=== PATIENT | male | born 1945 | race African-American/Black ===

== ENCOUNTER 2016-07-24 05:13 | Inpatient (IN) | payer OTHER ==
[2016-07-24] VITALS (29 sets, daily range): BP systolic 66–231; BP diastolic 47–137
[~2016-07-24] VITALS: Ht 185.4 cm; Wt 82.3 kg
--- NOTE | ~2016-07-24 | D ---
[facility] [place] [address] DISCHARGE SUMMARY Name: VALDEZ WALTER Room #: 214-P ADM IN M.R.#: [id number] Admission: 07/24/16 Attend Phys: Anastacio Aguilar Discharge: Date of : 47 Report #: [id number] THIS REPORT FOR: //name// CC: Anastacio Doll DATE OF SERVICE: 07/27/2016 DATE OF ADMISSION: 07/24/2016. DATE OF DISCHARGE: 07/27/2016. ADMITTING DIAGNOSIS: Acute ST segment elevation myocardial infarction. DISCHARGE DIAGNOSES: 1. Coronary artery disease with ischemic cardiomyopathy and left ventricular dysfunction, ejection fraction of 25%. 2. Dyslipidemia. 3. History of hypertension. Follow up Dr. Aguilar in 3-4 weeks. DISCHARGE DIET: Salt restricted. [place] [employer] step 1 diet. DISCHARGE MEDICATIONS: 1. Carvedilol 6.25 mg p.o. b.i.d., lisinopril 10 mg daily. 2. Aspirin 81 mg daily. 3. Brilinta b.i.d. 4. Sublingual nitroglycerin. 5. Simvastatin 40 mg daily. PROCEDURES PERFORMED: 1. Left heart catheterization. 2. Percutaneous transluminal coronary angioplasty of a right totally occluded LAD in the mid portion with a 2.5 x 18 mm Resolute GRAHAM stent dilated to 18 atmospheres. BRIEF CLINICAL HISTORY: See history and physical in the chart. HOSPITAL COURSE: The patient was admitted to the hospital and went directly to angiography suite and underwent revascularization as stated above without complications. His blood pressures were quite low and this was supported with volume. Review of echocardiogram demonstrating ejection fraction of 25%, therapy was initiated per guidelines. Post-procedure, the patient had issues with blood pressure and his blood pressures stabilized on the current medical regimen. He was allowed to ambulate without any limitations of activity. [facility] [address] [place] [address] DISCHARGE SUMMARY Name: VALDEZ WALTER SOFI Room #: 214-P [facility] IN .R.#: [id number] Admission: 07/24/16 Attend Phys: Anastacio Aguilar Discharge: Date of : 47 Report #: [id number] Review of his decreased ejection fraction and risk of cardiac dysrhythmias with sudden cardiac , a defibrillator vest was then ordered to be discharged with the patient. He is being discharged in improved and stable condition to follow up with the previously stated discharge instructions and medications. <ELECTRONICALLY SIGNED> By: Anastacio Aguilar MD 07/27/16 1152 0724 0745 Anastacio Aguilar MD /nt
--- NOTE | ~2016-07-24 | EKG ---
[address] [place] [address] ELECTROCARDIOGRAM REPORT Name: VALDEZ WALTER SOFI Room #: 214-P ADM IN M.R.#: [id number] Admission: 07/24/16 Attend Phys: Dia Díaz MD Discharge: Date of : 47 Report #: [id number] THIS REPORT FOR: //name// [facility] ED Test Date: 2016-07-24 Test Time: 05:50:36 Pat Name: VALDEZ WALTER Department: Room: 214 Gender: M Belt Turner: PILAR : 1945 Requested By: Adelita Hammond Order Number: [id number] MD: Huy Hanks Measurements Intervals [place] Rate: 123 P: 52 MS: 128 QRS: 55 QRSD: 98 T: 201 QT: 332 QTc: 475 Interpretive Statements Sinus tachycardia Anterior ST elevation, consider injury pattern No previous ECG available for comparison Electronically Signed On 07-24-2016 7:57:51 GENETIC SCIENTIST by Huy Hanks [email or web address] <ELECTRONICALLY SIGNED> By: Huy Hanks MD, [facility] 07/24/16 0757 0550 0550 Huy Hanks MD, FACC /EPI
--- NOTE | ~2016-07-24 | EKG ---
[address] [address] ELECTROCARDIOGRAM REPORT Name: VALDEZ WALTER SOFI Room #: 214-P ADM IN M.R.#: [id number] Admission: 07/24/16 Attend Phys: Anastacio Aguilar Discharge: Date of : 47 Report #: [id number] THIS REPORT FOR: //name// [facility] Test Date: 2016-07-24 Test Time: 08:32:42 Pat Name: VALDEZ WALTER Department: Room: 214 P Gender: M Contracts Officer: Susan VELASCO : 1945 Requested By: Anastacio Aguilar Order Number: [id number] MD: Sebastián Claudio Measurements Intervals [place] Rate: 79 P: 73 [place]: 134 QRS: 72 QRSD: 106 T: 172 QT: 427 QTc: 490 Interpretive Statements Sinus rhythm Borderline repolarization abnormality Borderline ST elevation, anterior leads Borderline prolonged QT interval Compared to ECG 07/24/2016 05:50:36 Sinus tachycardia no longer present ST (T wave) deviation still present Electronically Signed On 07-24-2016 11:13:29 BIODIESEL ENGINE SPECIALIST by Sebastián Claudio [email or web address] <ELECTRONICALLY SIGNED> By: Sebastián Claudio MD 07/24/16 1113 0832 Sebastián Claudio MD /EPI
--- NOTE | ~2016-07-24 | CATHLAB ---
[place] [address] [address] [place] [address] INVASIVE PROCEDURE REPORT Name: VALDEZ WALTER Room #: 214-P [facility] IN M.R.#: [id number] Admission: 07/24/16 Attend Phys: Anastacio [place] Discharge: Date of : 47 Date of Service: 07/27/16 0716 Report #: [id number] THIS REPORT FOR: //name// CC: Anastacio Doll DATE OF SERVICE: 07/24/2016 DATE OF SERVICE: 07/24/2016. INDICATIONS: A 71-year-old male patient with acute ST segment elevation myocardial infarction. PROCEDURES: 1. Left heart catheterization, selective left and right coronary angiography, measurement of left ventricular end diastolic pressures. 2. Percutaneous transluminal coronary angioplasty and stenting with a Medtronic Resolute 2.5 x 18 mm GRAHAM stent taken to 18 atmospheres. 3. Supervision of conscious sedation. SURGICAL ORDERLY: Anastacio Aguilar M.D. BRIEF DESCRIPTION OF PROCEDURE: After informed consent was obtained, the patient was brought to the cardiac catheterization laboratory in stable condition. The patient's right groin was prepped and draped in the usual sterile manner after which lidocaine was then instilled. Utilizing a modified Seldinger technique, the right femoral artery was then accessed. Under fluoroscopic visualization using selective coronary catheters, the right and left coronaries were opacified and visualized. The left ventriculogram was likewise imaged per standard protocol with EDP being measured. Subsequent to this, the sheath was removed, hemostasis achieved. The patient tolerated the procedure well. There were no complications. Determination of need for acute intervention was identified and subsequent diagnostic catheters were removed. Standard left guide was then advanced under fluoroscopic visualization and engaged the left coronary ostium. A 0.014 floppy wire was then advanced distal to the lesion and a 2.5 x 50 mm dilatation balloon was utilized to predilate a totally occluded LAD. Subsequent to this, the stent was then placed, positioned, appropriately deployed to 18 atmospheres. There was no loss of side branch, distal embolization or complications noted. FINDINGS: 1. HEMODYNAMICS: A. Preprocedure aortic pressure: 84/63. B. The left ventricular diastolic pressures 20-25. [facility] [address] [place] [address] INVASIVE PROCEDURE REPORT Name: SABAVALDEZ SOFI Room #: 214-P [facility] IN ..#: [id number] Admission: 07/24/16 Attend Phys: Anastacio France Discharge: Date of : 47 Date of Service: 07/27/16 0716 Report #: [id number] C. Post-procedure aortic pressure 90/61. 2. FLUOROSCOPY: Under fluoroscopic visualization, there was extensive calcific plaquing on the epicardial coronary arteries. No significant plaquing on the valvular or intramyocardial structures of the heart. 3. ANGIOGRAPHY: This is a right coronary dominant system. A. Left main is normal origin and caliber, bifurcates left anterior descending and left circumflex has mild luminal irregularities, but no flow limiting lesions. B. Left anterior descending is a moderate caliber vessel, which proceeds in the anterior interventricular sulcus gives rise to first diagonal branch, it is subtotally occluded with FRANKIE 0 to FRANKIE 1 flow. C. Left circumflex is a moderate caliber vessel, which has a 50% eccentric lesion proximally. Then, it reconstitutes itself and continues in the lateral wall giving rise to marginal branch. D. Right coronary artery is of normal origin and large caliber vessel, which proceeds in the AV groove. At the acute margin there is a marginal branch that has a 90% proximal lesion that appears to be a small in caliber. There is a 50% narrowing of the RCA proper prior to the acute margin. The vessel then continues posteriorly with luminal irregularities, but no significant high-grade lesions. E. Post-intervention angiography of the left anterior descending artery: The vessel is as previously mentioned changes. At the site of previous high grade lesion, the vessel is widely patent. There is no significant loss of side branch, distal embolization or intraluminal disruption. FRANKIE flow was 3. The mid and distal LAD has moderate irregularities with no high-grade lesions noted. IMPRESSION: 1. Coronary artery disease, severe, severe single vessel with moderate two-vessel. 2. Successful percutaneous revascularization of left anterior descending artery. 3. Abnormal hemodynamics with evidence of cardiogenic shock. <ELECTRONICALLY SIGNED> By: Anastacio Aguilar MD 07/27/16 1152 0716 0913 Anastacio Aguilar MD /nt
--- NOTE | ~2016-07-24 | EKG ---
[address] [address] ELECTROCARDIOGRAM REPORT Name: VALDEZ WALTER SOFI Room #: 214-P ADM IN M.R.#: [id number] Admission: 07/24/16 Attend Phys: Dia Díaz MD Discharge: Date of : 47 Report #: [id number] THIS REPORT FOR: //name// [facility] ED Test Date: 2016-07-24 Test Time: 05:17:49 Pat Name: VALDEZ WALTER Department: Room: 214 Gender: M Synthetic Soil Blocks Pulper: PILAR : 1945 Requested By: Adelita Hammond Order Number: [id number] MD: Huy Hanks Measurements Intervals [place] Rate: 110 P: 55 [place]: 130 QRS: 53 QRSD: 94 T: 46 QT: 357 QTc: 484 Interpretive Statements Sinus tachycardia Anterior infarct, acute (LAD) No previous ECG available for comparison Electronically Signed On 07-24-2016 7:57:09 POCKET SECRETARY ASSEMBLER by Huy Hanks [email or web address] <ELECTRONICALLY SIGNED> By: Huy Hanks MD, [facility] 07/24/16 0757 0517 05 Huy Hanks MD, FACC /EPI
--- NOTE | ~2016-07-24 | HC ---
[facility] [place] [address] CONSULTATION Name: VALDEZ WALTER Room #: 214-P ADM IN M.R.#: [id number] Admission: 07/24/16 Attend Phys: Anastacio Aguilar Discharge: Date of : 47 Report #: [id number] THIS REPORT FOR: //name// CC: Anastacio Doll PRIMARY CARE PHYSICIAN:. Richy Doll M.D. REFERRING PHYSICIAN: Cameron Aguilar REASON FOR REFERRAL: Acute respiratory failure. ____ hypoxia. HISTORY OF PRESENT ILLNESS: The patient is a 71-year-old -[place] male, who presents to Emergency Room with some onset of dyspnea. With subsequent evaluation, the patient was found to have non-ST elevation myocardial infarction. He underwent cardiac catheterization. He is not hypoxic. A pulmonary consultation was requested. Portable chest x-ray post-procedure revealed bilateral interstitial infiltrates consistent with cardiogenic pulmonary edema. The patient has known COPD. He continues to smoke about a pack a day. He has seen in the past. He is not on any maintenance bronchodilator therapy. Otherwise, the patient has been in her usual state of health until 2 days prior to presentation. He states that 2 days ago, I experienced severe onset of chest pain that lasted about 30 minutes. Today, he developed increasing dyspnea along with diaphoresis. The patient's is currently admitted in the hospital, she is intensive care unit, critically ill. PAST MEDICAL HISTORY: As mentioned above including tobacco abuse, COPD, peripheral vascular disease, undergoing left external iliac graft procedure performed by ____ in 2013, hyperlipidemia, daily alcohol use, cataracts, undergoing right cataract surgery, coronary artery disease with past myocardial infarction in 2014. Also, has a history of hypertension along with a history of medical noncompliance. PAST SURGICAL HISTORY: Otherwise unremarkable. ALLERGIES: None to medications. HOME MEDICATIONS: Lisinopril, atorvastatin, amlodipine, Plavix, [facility] [address] [place] [address] CONSULTATION Name: VALDEZ WALTER [place] Room #: 214-P [facility] IN ..#: [id number] Admission: 07/24/16 Attend Phys: Anastacio Aguilar Discharge: Date of : 47 Report #: [id number] hydrochlorothiazide, aspirin. FAMILY HISTORY: Notable for coronary artery disease in the family including his brother. SOCIAL HISTORY: He is . is currently very ill in the hospital and intensive care unit. He has smoked all his life smoking 2 packs a day. There is no history of alcohol abuse. 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 REVIEW OF SYSTEMS: As mentioned above, otherwise somewhat limited, as the patient is in acute respiratory distress. He is currently on BiPAP. PHYSICAL EXAMINATION: GENERAL: Appears to be much more stable, alert, oriented to place and time. VITAL SIGNS: His blood pressure has been labile up to 220/120 mmHg and at times had been hypotensive with systolic around 80 mmHg systolic. Currently, it is stable around 160 mmHg systolic, saturation 100% on BiPAP. Pulse is 80, respiratory rate is 20. HEENT: Normocephalic, atraumatic. NECK: Supple, without any lymphadenopathy or thyromegaly. CHEST: Breath sounds are fair with few scattered crackles bilaterally. No wheezes. CARDIOVASCULAR: Normal S1, S2. Heart sounds are distant. No obvious murmurs or gallop. Pulses are 2+/4+ bilaterally. ABDOMEN: Soft, nontender, no organomegaly or masses felt. EXTREMITIES: There is no edema, cyanosis or clubbing. LABORATORY DATA: Chest x-ray shows bilateral interstitial infiltrates. Electrolytes: Sodium 139, potassium 3.7, chloride 101, CO2 16, BUN is 21, creatinine is 2.0. WBC is 11,800, hemoglobin 17.1, platelets are normal. Arterial blood gas earlier revealed pH 7.29, pCO2 of 37, pO2 of 207 on FiO2 100%. Albumin is 3.9. Echocardiogram performed earlier today revealed EF approximately 20-25% with severely reduced systolic function, mild to moderate LVH, right ventricle was unremarkable, right atrium was unremarkable. Left atrium was normal. Aortic valve was unremarkable. Mitral valve showed mild regurgitation, pulmonary artery pressure measured 22 mmHg. IMPRESSION: 1. Acute hypoxemic respiratory failure in this 71-year-old -[place] male with a non-ST wave myocardial infarction. The patient is felt to have cardiogenic pulmonary edema. 2. Metabolic acidosis. Likely related to hypoperfusion, renal failure. This will need to monitor closely. 3. Renal consultation may be necessary. [address] [address] CONSULTATION Name: WALTERVALDEZ Room #: 214-P ADM IN M.R.#: [id number] Admission: 07/24/16 Attend Phys: Anastacio Aguilar Discharge: Date of : 47 Report #: [id number] IMPRESSION: 1. Chronic obstructive pulmonary disease with ongoing tobacco abuse. Severity unknown. Currently without obvious exacerbation. We will continue bronchodilators. 2. Non-ST wave elevation myocardial infarction. 3. Coronary artery disease with severe left ventricular dysfunction, ejection fraction approximately 20-25%. 4. Presumed acute kidney injury along with metabolic acidosis as mentioned above. Need to follow renal function closely. Given his recent cardiac catheterization, concerns for worsening renal function. RECOMMENDATION AND DISCUSSION: Continue noninvasive positive pressure ventilation, diuresis as you are, monitor blood pressure closely. Bronchodilators will be initiated. DVT and GI prophylaxis will be addressed. If patient becomes unstable hemodynamically with worsening hypoxia, we will consider transfer to the ICU for closer monitoring. This was discussed with Dr. Filemon Aguilar along with a nurse. <ELECTRONICALLY SIGNED> By: John Nails MD 07/24/16 1611 1322 1444 John Nails MD /nt
--- NOTE | ~2016-07-24 | H ---
[facility] [place] [address] [place] [address] HISTORY AND PHYSICAL Name: VALDEZ WALTER Room #: 214-P ADM IN M.R.#: [id number] Admission: 07/24/16 Attend Phys: Anastacio Aguilar Discharge: Date of : 46 Report #: [id number] THIS REPORT FOR: //name// CC: Anastacio Devlinen Lavon DATE OF SERVICE: 07/24/2016 HISTORY OF PRESENT ILLNESS: This is a very pleasant 71-year-old -[place] male without prior history of coronary artery disease, presented to the emergency room complaining of shortness of breath. The patient stated that he had not had any prior symptoms of discomfort, but while waiting in the ICU with his terminally ill spouse he became suddenly short of breath. He had noticed this slow progression of shortness of breath over 2 days prior to presentation and developed substernal pressure and fullness which was quite severe. He stated this only lasted 30 minutes or so before he visited the emergency room for further assessment. Upon arrival in the emergency room, he was significantly dyspneic, diaphoretic, hypoxemic, requiring BiPAP ventilation support. He had some nausea and vomiting associated in this time interval also. Upon further questioning, the patient was noted to have remote history of myocardial infarction possibly 20 to 25 years ago, but the specifics are not available. He has not had any significant progression of shortness of breath, fatigability or exertional chest tightness, heaviness or fullness prior to this recorded interval. PAST MEDICAL HISTORY: Significant for: 1. Hypertension. 2. Dyslipidemia. 3. Tobacco use and dependence. 4. Daily alcohol intake. 5. Peripheral vascular disease with right superficial femoral artery occlusion, treated with aortofemoral bypass by Dr. Sahu in 2013. ALLERGIES: No known drug allergies. PAST SURGICAL HISTORY: 1. Cataract in right eye. 2. Vascular surgery as stated above. MEDICATIONS AT HOME: Lisinopril 20 daily, Lipitor 20 daily, Norvasc 5 daily, Plavix 75 daily, hydrochlorothiazide 12.5 daily, aspirin 81 mg daily. SOCIAL HISTORY: The patient is to a terminally ill spouse, on hospice, does not follow any particular diet restriction or exercise regimen. Does consume alcohol daily and continues to smoke. [facility] [address] [place] [address] HISTORY AND PHYSICAL Name: VALDEZ WALTER [place] Room #: 214-P [facility] IN M.R.#: [id number] Admission: 07/24/16 Attend Phys: Anastacio Aguilar Discharge: Date of : 47 Report #: [id number] REVIEW OF SYSTEMS: Except for symptoms previously mentioned and those commensurate with comorbid state, the 10-point review of systems is negative. LABORATORY DATA: BUN and creatinine are 21 and 2.0. Troponin is 0.38. BNP is 2744. H and H are 17.1 and 53.5. IMAGING STUDIES: Electrocardiogram demonstrates normal sinus rhythm with acute ST segment elevation in the anterior precordial leads from I to V4. Voltage criteria for LVH. PHYSICAL EXAMINATION: GENERAL: Well-developed, well-nourished -[place] male, tachypneic, in some [id number] respiratory distress. HEENT: Normocephalic, atraumatic. Pupils are equal, round, reactive to light and accommodation. Extraocular muscles are intact. Sclerae and conjunctivae are anicteric. NECK: JVD is normal. Carotid upstrokes are bilaterally symmetrical. No bruits are heard. No thyromegaly. No lymphadenopathy. LUNGS: Clear to auscultation. No wheezes, rhonchi or crackles. No CVA tenderness. CARDIAC: Demonstrates a regular rhythm. Normal first and second heart sounds. No ventricular or atrial gallops, no rubs noted. No murmurs. No lifts or heaves, PMI normal. ABDOMEN: Soft, nontender, nondistended. Normal bowel sounds. EXTREMITIES: Without cyanosis, clubbing or edema. Distal pulses are intact. DTR symmetrical. NEUROLOGIC: Cranial nerves 2-12 are grossly normal and symmetrical. PSYCHIATRIC: Alert, oriented with normal affect. SKIN: Warm and dry. IMPRESSION: 1. Acute ST segment elevation myocardial infarction involving what appears to be the anterior wall. In view of this, discussed options were proceeding directly to angiography to delineate coronary anatomy and proceed with emergent treatment if appropriate. Risks, complications and alternatives were discussed with the patient who understands and wishes to proceed. 2. Tobacco abuse and dependence. We discussed brief smoking cessation and the need for smoking cessation. 3. Dyslipidemia. We will need to check his lipid profile to make sure that the Lipitor is at target with both LDL and HDL. We will then make further recommendations at that time. We discussed [place] [employer] step 1 diet. 4. Hypertension, not an issue now. He seems to be somewhat hypotensive at the [facility] [address] [place] [address] HISTORY AND PHYSICAL Name: VALDEZ WALTER Room #: 214-P ADM IN M.R.#: [id number] Admission: 07/24/16 Attend Phys: Anastacio Aguilar Discharge: Date of : 47 Report #: [id number] present time. We will see how we need to adjust this relative to results of his intervention. <ELECTRONICALLY SIGNED> By: Anastacio Aguilar MD 07/27/16 1152 0731 0838 Anastacio Aguilar MD /nt
--- NOTE | ~2016-07-24 | EKG ---
[address] [place] [address] ELECTROCARDIOGRAM REPORT Name: VALDEZ WALTER SOFI Room #: 214-P ADM IN M.R.#: [id number] Admission: 07/24/16 Attend Phys: Anastacio Aguilar Discharge: Date of : 47 Report #: [id number] THIS REPORT FOR: //name// [facility] Test Date: 2016-07-24 Test Time: 09:52:25 Pat Name: VALDEZ WALTER Department: Room: 214 P Gender: M Business Services Manager: kim : 1945 Requested By: Anastacio Aguilar Order Number: [id number] MD: Sebastián Claudio Measurements Intervals [place] Rate: 108 P: 71 [place]: 127 QRS: 75 QRSD: 95 T: 255 QT: 315 QTc: 422 Interpretive Statements Sinus tachycardia Biatrial enlargement Left ventricular hypertrophy Nonspecific T abnormalities, lateral leads ST elevation, consider anterior injury Electronically Signed On 07-24-2016 11:48:08 THERMOSCREW OPERATOR by Sebastián Claudio [email or web address] <ELECTRONICALLY SIGNED> By: Sebastián Claudio MD 07/24/16 1148 D: 01951 1 Sebastián Claudio MD /BHUMI
--- NOTE | ~2016-07-24 | 2DMMODE ---
[facility] [place] [address] 2 D/M-MODE ECHOCARDIOGRAM Name: VALDEZ WALTER SOFI Room #: 214-P [facility] IN M.R.#: [id number] Admission: 07/24/16 Attend Phys: Anastacio France Discharge: Date of : 47 Date of Service: 07/24/16 0835 Report #: [id number] THIS REPORT FOR: //name// Transthoracic Echocardiography Ordering Anastacio Aguilar physician: Referring Richy Doll, physician: Anastacio [employer] Custodian: Livier Koenig Indications/History: STEMI. BP: 97 / 52 HR: 74bpm Height: 72in Weight: 180.6lb Study data: M-mode, complete 2D, complete spectral Doppler, and color Doppler. Location: Bedside. Routine. Image quality was good. 2D measurements Normal Normal LVID ED 50.8mm 36-57 IVS ED 14.7mm 6-11 LVID ES 45.8mm 23-40 LVPW ED 13.3mm 6-11 LA volume 25ml/m2 16-28 AoRoot diam 33.4mm 21-37 index ED LVOT diameter 22mm 18-23 Findings: Left ventricle: The cavity size was normal. Wall thickness was increased in a pattern of mild to moderate LVH. Systolic function was severely reduced. The estimated ejection fraction was in the range of 20% to 25%. Severe diffuse hypokinesis. Regional wall motion abnormalities: Severe hypokinesis of the anterolateral myocardium and apex. Akinesis of base of inferior wall. Right ventricle: The cavity size was normal. Systolic function was reduced. Right atrium: The atrium was normal in size. Left atrium: The atrium was normal in size. Volume index: 25ml/m2 (S). [address] [address] 2 D/M-MODE ECHOCARDIOGRAM Name: VALDEZ WALTER Room #: 214-P [facility] IN M.R.#: [id number] Admission: 07/24/16 Attend Phys: Anastacio France Discharge: Date of : 47 Date of Service: 07/24/16 0835 Report #: [id number] Aortic valve: Structurally normal valve. Doppler: There was no stenosis. No regurgitation. Peak velocity: 112.8cm/s (S). Mitral valve: Structurally normal valve. Doppler: There was no evidence for stenosis. Mild regurgitation. Peak E-wave velocity: 64.4cm/s. Peak A-wave velocity: 76.6cm/s. Tricuspid valve: Structurally normal valve. Doppler: There was no evidence for stenosis. Trivial regurgitation. Regurgitant peak velocity: 209.1cm/s. Peak RV-RA gradient: 17mm Hg (S). Pulmonic valve: Structurally normal valve. Doppler: There was no evidence for stenosis. Trivial regurgitation. Pericardium: There was no pericardial effusion. Aorta: Aortic root: The aortic root was normal in size. Pulmonary artery: Systolic pressure was estimated to be 22mm Hg. Diastolic function: Doppler parameters are consistent with abnormal left ventricular relaxation (grade 1 diastolic dysfunction). Systemic veins: Inferior vena cava: The vessel was normal in size; the respirophasic diameter changes were in the normal range (= 50%). Conclusions 1. Left ventricle: Systolic function was severely reduced. The estimated ejection fraction was in the range of 20% to 25%. Severe hypokinesis of the anterolateral myocardium and apex. Akinesis of base of inferior wall. Doppler parameters are consistent with abnormal left ventricular relaxation (grade 1 diastolic dysfunction). 2. Aortic valve: Structurally normal valve. There was no stenosis. No regurgitation. 3. Mitral valve: Structurally normal valve. Mild regurgitation. 4. Pulmonary arteries: Systolic pressure was estimated to be 22mm Hg. [facility] [address] [place] [address] 2 D/M-MODE ECHOCARDIOGRAM Name: WALTERVALDEZ HILLSIDE Room #: 214-P [facility] IN ..#: [id number] Admission: 07/24/16 Attend Phys: Anastacio France Discharge: Date of : 47 Date of Service: 07/24/1635 Report #: [id number] 5. Pericardium, extracardiac: There was no pericardial effusion. <ELECTRONICALLY SIGNED> By: Huy Hanks MD, FACC 07/24/16920 0 Huy Hanks MD, FACC /babs
--- NOTE | ~2016-07-24 | EKG ---
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: kim : 1945 Requested By: Anastacio Aguilar Order Number: [id number] MD: Huy Hanks Measurements Intervals [place] Rate: 91 P: 62 [place]: 137 QRS: 60 QRSD: 101 T: 112 QT: 395 QTc: 487 Interpretive Statements Sinus rhythm Nonspecific T abnormalities, lateral leads ST elevation, consider anterior injury Borderline prolonged QT interval Compared to ECG 07/24/2016 09:52:25 Anterior injury pattern less prominent Electronically Signed On 07-25-2016 7:52:31 MAILER APPRENTICE by Huy Hanks [email or web address] <ELECTRONICALLY SIGNED> By: Huy Hanks MD, [facility] 07/25/16 0752 0639 0639 Huy Hanks MD, [facility] /EPI
[~2016-07-24 05:13] MED LIST: BAYER CHEWABLE81 MG; HYDROCHLOROTHIAZIDE PO; LIPITOR20 MG PO; LISINOPRIL20 MG PO; NORVASC5 MG PO; PLAVIX 75 MG TA75 M1 PO; ZIAGEN 300 MG300 MG
[2016-07-24 05:59] LABS: BASOPHILS 1.3 % (0.0-2.0); EOSINOPHILS 1.5 % (0.0-3.0); HEMATOCRIT 53.5 % (42.0-52.0); HEMOGLOBIN 17.1 gm/dL (14.0-18.0); LYMPHOCYTES 39.2 % (24.0-44.0); MCH 28.8 pg (26.0-34.0); MCHC 31.9 % (28.0-37.0); MCV 90.2 fL (80.0-100.0); MONOCYTES 7.4 % (1.0-8.0); POLYS 50.6 % (36.0-66.0); RBC 5.94 mil/uL (4.50-6.00); RDW 15.4 % (10.5-14.5); WBC 11.8 thou/uL (4.0-11.0)
[2016-07-24 06:08] LABS: CALCIUM 9.1 mg/dL (8.5-10.1); POTASSIUM 3.7 mmol/L (3.5-5.1)
[2016-07-24 06:10] LABS: APTT 27.8 Seconds (24.5-32.8); MANUAL DIFF NO; PROTIME 10.3 Seconds (9.3-11.4)
[2016-07-24 06:22] LABS: ALBUMIN 3.9 g/dL (3.4-5.0); TOTAL BILIRUBIN 0.5 mg/dL (<0.1-1.0); TOTAL PROTEIN 7.9 g/dL (6.4-8.2); TROPONIN-I 0.38 ng/mL (<0.04-0.07)
[2016-07-24 08:38] LABS: PLATELET COUNT 218 thou/uL (150-400); PLATELET ESTIMATE NORMAL
[2016-07-24 10:02] LABS: ABG SAMPLE TYPE ARTERIAL; BE(vivo) -7.5 mmol/L (-2 to +3); HCO3 18.1 mmol/L (22.0-26.0); O2(CT) 27.1 mL/dL (15.0-23.0); PCO2 37.9 mmHg (35.0-45.0); PO2 207.7 mmHg (80.0-100.0); Pressure Support 6 cm H20; STICK SITE L.RADIAL; pH 7.298 (7.360-7.450); sO2 99.3 % (92.0-98.0); tCO2 19.3 mmol/L (24.0-30.0)
[2016-07-24 13:37] LABS: ABG SAMPLE TYPE ARTERIAL; BE(vivo) -3.2 mmol/L (-2 to +3); HCO3 19.4 mmol/L (22.0-26.0); LACTATE 2.09 mmol/L (0.5-2.0); O2(CT) 23.2 mL/dL (15.0-23.0); PCO2 29.7 mmHg (35.0-45.0); pH 7.432 (7.360-7.450); sO2 92.1 % (92.0-98.0); tCO2 20.3 mmol/L (24.0-30.0)
[2016-07-24 13:38] LABS: STICK SITE L.BRACHIAL
[2016-07-24 14:39] LABS: CALCIUM 9.1 mg/dL (8.5-10.1); CREATININE 1.9 mg/dL (0.6-1.3); MAGNESIUM 2.2 mg/dL (1.8-2.4)
[2016-07-25] VITALS (10 sets, daily range): BP systolic 118–155; BP diastolic 75–99
[2016-07-25 04:50] LABS: HEMATOCRIT 46.5 % (42.0-52.0); HEMOGLOBIN 15.3 gm/dL (14.0-18.0); MCH 28.3 pg (26.0-34.0); MCHC 32.9 % (28.0-37.0); MCV 85.8 fL (80.0-100.0); RBC 5.42 mil/uL (4.50-6.00); RDW 14.9 % (10.5-14.5); WBC 16.1 thou/uL (4.0-11.0)
[2016-07-25 05:14] LABS: ANION GAP 13 mmol/L (7-16); BUN 23 mg/dL (7-18); CALCIUM 9.3 mg/dL (8.5-10.1); CHLORIDE 103 mmol/L (98-107); CHOLESTEROL 152 mg/dL (<200); CO2 24 mmol/L (21-32); CREATININE 1.6 mg/dL (0.6-1.3); GLUCOSE 125 mg/dL (70-99); HDL CHOLESTEROL 65 mg/dL (>40); LDL CHOLESTEROL 67 mg/dL (<100); POTASSIUM 3.8 mmol/L (3.5-5.1); SODIUM 140 mmol/L (136-145); TC:HDL 2.3 Ratio (Not establshd); TRIGLYCERIDE 103 mg/dL (<150); VLDL 21 mg/dL (<40)
[2016-07-26] VITALS (8 sets, daily range): BP systolic 104–128; BP diastolic 63–79
[2016-07-26 06:43] LABS: CALCIUM 9.1 mg/dL (8.5-10.1); CREATININE 1.7 mg/dL (0.6-1.3); POTASSIUM 3.4 mmol/L (3.5-5.1)
[2016-07-27 03:38] VITALS: BP 94/65
[2016-07-27 04:28] LABS: CALCIUM 8.7 mg/dL (8.5-10.1); CREATININE 1.7 mg/dL (0.6-1.3); POTASSIUM 3.6 mmol/L (3.5-5.1)
[2016-07-27 07:35] VITALS: BP 102/70
[2016-07-27] MEDS ORDERED: LASIX 40 MG TAB40 M2 PO (10:52)
[2016-07-27] MEDS ORDERED: POTASSIUM20 PO (10:53)
[2016-07-27] MEDS ORDERED: BRILINTA90 MG PO (10:56)
[2016-07-27] MEDS ORDERED: COREG6.25 MG PO (10:58)
[2016-07-27 11:45] VITALS: BP 101/58
[2016-07-27 13:39] VITALS: BP 101/58
[2016-07-27 16:15] VITALS: BP 144/91
[2016-07-27 20:18] VITALS: BP 157/93
[2016-07-28 04:13] VITALS: BP 125/85
[2016-07-28 07:25] VITALS: BP 113/84
[2016-07-28 08:52] VITALS: BP 113/84
[2016-08-13] MEDS ORDERED: CLOPIDOGREL75 MG PO (10:55)
[2016-08-24] MEDS ORDERED: COUMADIN 5 MG TA5 M1 PO (13:26)
[2016-08-24] MEDS ORDERED: LASIX 20 MG TAB20 MG PO (13:27)
[2016-08-24] MEDS ORDERED: CARVEDILOL3.125 MG PO (13:27)
[2016-08-24] MEDS ORDERED: PROTONIX40 M1 PO (13:27)
[2016-08-24] MEDS ORDERED: LISINOPRIL2.5 MG PO (13:27)
== END 2016-07-28 10:35 | disposition home or self-care (01) | DRG 246 ==
LOC: ER 05:13 → 2N 06:13 → TBACV 06:13 → 2N 07:32
PROVIDERS: Emergency Medicine; Internal Medicine; Internal Medicine Pulmonary Disease
PROC: 4A023N7 Measurement of Cardiac Sampling and Pressure, Left Heart, Percutaneous Approach (ICD-10-PCS; principal; 2016-07-24)
PROC: 027034Z Dilation of Coronary Artery, One Artery with Drug-eluting Intraluminal Device, Percutaneous Approach (ICD-10-PCS; principal; 2016-07-24)
PROC: B2111ZZ Fluoroscopy of Multiple Coronary Arteries using Low Osmolar Contrast (ICD-10-PCS; principal; 2016-07-24)
PROC: 5A09357 Assistance with Respiratory Ventilation, Less than 24 Consecutive Hours, Continuous Positive Airway Pressure (ICD-10-PCS; 2016-07-24)
PROC: B2151ZZ Fluoroscopy of Left Heart using Low Osmolar Contrast (ICD-10-PCS; 2016-07-24)
DX: I21.09 ST elevation (STEMI) myocardial infarction involving other coronary artery of anterior wall (principal); J96.01 Acute respiratory failure with hypoxia; I16.1 Hypertensive emergency; E87.2 Acidosis; N17.9 Acute kidney failure, unspecified; I74.8 Embolism and thrombosis of other arteries; E78.5 Hyperlipidemia, unspecified; J44.9 Chronic obstructive pulmonary disease, unspecified; I73.9 Peripheral vascular disease, unspecified; I25.10 Atherosclerotic heart disease of native coronary artery without angina pectoris; F17.210 Nicotine dependence, cigarettes, uncomplicated; I11.0 Hypertensive heart disease with heart failure; I50.9 Heart failure, unspecified; I25.5 Ischemic cardiomyopathy; Z79.82 Long term (current) use of aspirin; Z79.899 Other long term (current) drug therapy; Z23 Encounter for immunization; Z98.41 Cataract extraction status, right eye; I25.2 Old myocardial infarction; Z91.14 Patient's other noncompliance with medication regimen; Z82.49 Family history of ischemic heart disease and other diseases of the circulatory system; F17.200 Nicotine dependence, unspecified, uncomplicated
CPT/HCPCS: 10081

== ENCOUNTER 2016-10-26 10:14 | Inpatient (IN) | payer OTHER ==
[2016-10-26] VITALS (41 sets, daily range): BP systolic 47–132; BP diastolic 18–120
[~2016-10-26] VITALS: Ht 182.9 cm; Wt 73.5 kg
--- NOTE | ~2016-10-26 | 2DMMODE ---
[address] [address] 2 D/M-MODE ECHOCARDIOGRAM Name: VALDEZ WALTER SOFI Room #: 170-12 ADM IN M.R.#: [id number] Admission: 10/26/16 Attend Phys: Georges Henriquez MD Discharge: Date of : 47 Date of Service: 10/26/16 1441 Report #: [id number] THIS REPORT FOR: //name// APPROVED REPORT Study performed: 10/26/2016 13:20:00 EXAM: Comprehensive 2D, Doppler, and color-flow Echocardiogram Patient Location: ER Room #: 12 Blood Pressure: 116/50 mmHg HR: 72 bpm Other Information Study Quality: Good Indications CAD Cardiomyopathy Hypertension/HDD S^P Cardiac Arrest Left Ventricle Left ventricular ejection fraction is severely decreased. LVEF is 10-15%. Diastolic function was not assessed. Atria The left atrium size is normal. The right atrium size is normal. Aortic Valve The aortic valve is normal in structure. Mitral Valve The mitral valve is normal in structure. Tricuspid Valve The tricuspid valve is normal in structure. Great Vessels IVC is dilated and collapses >50% with [address] [address] 2 D/M-MODE ECHOCARDIOGRAM Name: VALDEZ WALTER Room #: 170-12 ADM IN M.R.#: [id number] Admission: 10/26/16 Attend Phys: Georges Henriquez MD Discharge: Date of : 47 Date of Service: 10/26/16 1441 Report #: [id number] inspiration. Pericardium There is no pericardial effusion. <Conclusion> Left ventricular ejection fraction is severely decreased. LVEF is 10-15%. <ELECTRONICALLY SIGNED> By: Anastacio Aguilar MD 10/26/161440 40 40 Anastacio Aguilar MD /INF
--- NOTE | ~2016-10-26 | CATHLAB ---
[facility] [address] [place] [address] INVASIVE PROCEDURE REPORT Name: VALDEZ WALTER Room #: 206-P [facility] IN M.R.#: [id number] Admission: 10/26/16 Attend Phys: Georges Henriquez MD Discharge: Date of : 47 Date of Service: 10/27/16 1219 Report #: [id number] THIS REPORT FOR: //name// CC: Georges Doll This is a right femoral arterial line placement. The patient was in the ICU requiring pressors and some hemodynamic instability. DESCRIPTION OF PROCEDURE: The right groin was prepped and draped in a sterile manner. 1% Xylocaine was used for local anesthesia. I placed a 6-Brazilian sheath in the right femoral artery without complication. This was hooked up for continuous monitoring. No hematoma or complication. IMPRESSION: Successful right femoral arterial line placement for hemodynamic monitoring. (this was performed in the ICU room). <ELECTRONICALLY SIGNED> By: Brayden Patino MD, FACC 11/06/1621 50 Brayden Patino MD, FACC /nt
--- NOTE | ~2016-10-26 | HC ---
[facility] [place] [address] CONSULTATION Name: VALDEZ WALTER SOFI Room #: 206-P [facility] IN M.R.#: [id number] Admission: 10/26/16 Attend Phys: Georges Henriquez MD Discharge: 11/06/16 Date of : 47 Report #: [id number] THIS REPORT FOR: //name// CC: Georges Doll HISTORY OF PRESENT ILLNESS: The patient is a 71-year-old male who was admitted into the Emergency Department. Prior history of hypertension, elevated lipids, CVA and coronary artery disease, status post PCI, who had worsening shortness of breath. He was noted to go into a full blown cardiopulmonary arrest with pulseless electrical activity, asystole, was intubated, noted to have ST elevation per EKG. He was mechanically ventilated. He was followed closely by Cardiology as well as Pulmonary Medicine and Nephrology with acute renal insufficiency. He was gradually able to be extubated. Neurology saw him and CT scan showed a stroke, left temporal occipital, noted to be an evolving stroke. There was also a question of a possible frontal lobe CVA. The patient is being considered for a pacemaker. He failed his swallow evaluation and is n.p.o. with severe dysphagia. We are seeing him in rehabilitation medicine consultation. PAST MEDICAL HISTORY: Includes hypertension, hyperlipidemia, ST elevation NV 07/24, stenting LAD and ischemic cardiomyopathy. There is a history of noncompliance. He had an NV in 2013 as well. Hypertension, cataract, hyperlipidemia and COPD. MEDICATIONS: Please see the full medication listing. HABITS: Was an everyday smoker prior to admission, cigarettes, noted to be 1 pack per day for 50 years. Alcohol use, yes. ALLERGIES: No known drug allergies. SOCIAL HISTORY: Lives with his daughter and his son in an apartment, 6 steps in, he has a cane and a walker, but he typically did not use. His family works during the day and he is home alone. Per notes, the family apparently could provide 24-hour supervision if warranted. REVIEW OF SYSTEMS: Did not offer any current complaints of chest pain, shortness of breath or abdominal discomfort. No complaints of specific extremity pain. Did not offer any complaints of headache or other head or facial problems. He does have the issue with swallowing as noted above. PHYSICAL EXAMINATION: GENERAL: He is a 71-year-old, slender -Bhut[place] male, no obvious distress. VITAL SIGNS: Temperature 97.2, pulse 98, respirations 17 and blood pressure 167/97. [address] [address] CONSULTATION Name: VALDEZ WALTER Room #: [facility] IN [facility].#: [id number] Admission: 10/26/16 Attend Phys: Georges Henriquez MD Discharge: 11/06/16 Date of : 47 Report #: [id number] NEUROLOGIC: He is alert, very soft spoken, dentition is poor, facies appeared symmetric. EOMs appeared to be full. He verbalizes very little. He will follow basic 1-step commands without difficulty. Functional range of motion of the left upper and left lower extremity strength is probably a grade 4-/5. Right upper extremity strength is more of a grade 3+, right lower extremity is more 3+. He is diffusely weak both upper and lower extremities, but appears to have more weakness of that right upper and right lower extremity. DTRs are trace to 1. There was no focal calf swelling, no distal lower extremity edema. Feet appeared to be warm. Functionally, he is min assist with sit to stand. He did a partial stand with a posterior loss of balance. Upper extremity dressing was dependent. ASSESSMENT: A 71-year-old male with the following problem list: 1. Evolving stroke, left temporal occipital. 2. Questionable frontal lobe cerebrovascular accident. 3. Rule out a component of hypoxic encephalopathy. 4. Cardiac arrest. 5. Ischemic cardiomyopathy with prior percutaneous coronary intervention with ovewn-qg-hraaixk congestive heart failure exacerbation. There is consideration for pacemaker placement. 6. Hypoxic and hypercapnic arrest, which have resolved. 7. Systolic heart failure, acute on chronic. 8. Severe dysphagia, is currently n.p.o. on PPN. 9. Hypertension. 10. Hyperlipidemia. 11. Kzvxt-pk-zrpfiac renal insufficiency. 12. History of left ventricular thrombus. PLAN: The patient is at a lower functional level, but is working with therapies. Issues include a question of whether he warrants a pacemaker or not. The other big issue is his severe dysphagia and n.p.o. status on PPN. Consideration for a PEG tube should be undertaken. If his tolerance improves, he further medically stabilizes with the decision regarding a pacemaker or not, and a definitive decision regarding nutritional status, He certainly could be an Acute [address] [place] [address] Rehabilitation candidate. At this point, we will continue to follow along with you as he further medically stabilizes. Thank you for asking us to assist in this patient's care. Sincerely, <ELECTRONICALLY SIGNED> By: Antonio Robert MD 11/06/16 1523 1503 2251 Antonio Robert MD /nt
--- NOTE | ~2016-10-26 | EKG ---
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: SHANKAR : 1945 Requested By: Obed Guerra Order Number: [id number] MD: Huy Hanks Measurements Intervals [place] Rate: 102 P: 82 [place]: 144 QRS: 78 QRSD: 106 T: 214 QT: 344 QTc: 449 Interpretive Statements Sinus tachycardia Probable anteroseptal infarct, recent T wave abnormality, consider lateral ischemia Compared to ECG 08/10/2016 06:31:36 evolutionary changes of an anterior infarct Electronically Signed On 10-28-2016 14:48:47 CDT by Huy Hanks [email or web address] <ELECTRONICALLY SIGNED> By: Huy Hanks MD, [facility] 10/28/16 1448 1017 1017 Huy Hanks MD, [facility] /EPI
--- NOTE | ~2016-10-26 | HC ---
[facility] [place] [address] CONSULTATION Name: VALDEZ WALTER Room #: 246-P [facility] IN M.R.#: [id number] Admission: 10/26/16 Attend Phys: Georges Henriquez MD Discharge: Date of : 47 Report #: [id number] THIS REPORT FOR: //name// CC: Georges Doll DATE OF SERVICE: 10/26/2016 REASON FOR CONSULTATION: Ventilator management. IMPRESSION: 1. Status post cardiac arrest. 2. Cardiomyopathy. 3. Probable chronic obstructive pulmonary disease. 4. Chronic kidney disease. 5. Hypernatremia and hyperkalemia. 6. History of left occipital cerebrovascular accident, hypertension, peripheral vascular disease, coronary artery disease. PLAN: Aerosol therapy, ventilator management, ICU protocol. Discussed with the family at bedside. HISTORY OF PRESENT ILLNESS: A 71-year-old male with history of coronary artery disease, hypertension, CVA, was in normal state of health yesterday, called daughter, complained of shortness breath, was bringing him to the ER when he stopped breathing, was brought in, found to have PEA asystole, treated per code sheet. PAST MEDICAL HISTORY: ALLERGIES: None known. MEDICATIONS: Included Plavix, warfarin, Coreg, lisinopril, Lasix, Protonix. SOCIAL HISTORY: Positive tobacco, negative ETOH. PAST SURGICAL HISTORY: Cataract surgery, ileal graft procedure, stent. FAMILY HISTORY: Coronary artery disease. REVIEW OF SYSTEMS: Unable as the patient is on ventilator, but had recently been in hospital, recently . PHYSICAL EXAMINATION: VITAL SIGNS: Pulse 61, respirations 28, BP 102/39 and sat 98%. LUNGS: Coarse, currently on sedation. HEART: Regular. [facility] [address] [place] [address] CONSULTATION Name: VALDEZ WALTER SOFI Room #: 246-P ADM IN M.R.#: [id number] Admission: 10/26/16 Attend Phys: Georges Henriquez MD Discharge: Date of : 47 Report #: [id number] ABDOMEN: Bowel sounds present. EXTREMITIES: Showed some chronic change, no edema. LABORATORY DATA: A pH 7.138, pCO2 of 47, pO2 of 85 on 100%, rate 26, tidal volume 550, PEEP of 5. White count 12.7, hemoglobin 14, platelets 170, no bands. BNP 5282. Troponin 0.05. BUN 22, creatinine 1.9. We will follow closely with you. Echo to be done. <ELECTRONICALLY SIGNED> By: Jermaine Ballesteros MD 10/29/16 0548 1422 11 Jermaine Ballesteros MD /nt
--- NOTE | ~2016-10-26 | EEG ---
[facility] [place] [address] ELECTROENCEPHALOGRAM Name: VALDEZ WALTER Room #: 206-P [facility] IN M.R.#: [id number] Admission: 10/26/16 Attend Phys: Georges Henriquez MD Discharge: 11/06/16 Date of : 47 Report #: [id number] THIS REPORT FOR: //name// CC: Georges Doll DATE OF SERVICE: 10/30/2016 This patient is being evaluated for altered mental status. EEG was done by placing the electrodes by standard 10-20 system of electrode placement. Both referential and sequential montages were used for recording. Background activity in this patient's EEG is about 8 Hz and 15 microvolts. It is intermixed with a lot of theta range slowing. Photic stimulation is unremarkable. IMPRESSION: This is a moderately abnormal EEG because it is intermixed with theta range slowing. That is a nonspecific abnormality, which can occur with encephalopathy, effect of psychotropic medication, dementia, etc. Clinical correlation is recommended. Thank you very much for this referral. <ELECTRONICALLY SIGNED> By: Siddhartha Arteaga MD 11/11/162002 1718 09 Siddhartha Arteaga MD /nt
--- NOTE | ~2016-10-26 | HC ---
[facility] [place] [address] CONSULTATION Name: VALDEZ WALTER Room #: 206-P [facility] IN M.R.#: [id number] Admission: 10/26/16 Attend Phys: Georges Henriquez MD Discharge: Date of : 47 Report #: [id number] THIS REPORT FOR: //name// CC: Georges Doll REASON FOR CONSULTATION: Elevated creatinine. REASON FOR PRESENTATION: Status post arrest. HISTORY OF PRESENT ILLNESS: The patient is 71-year-old with past cardiomyopathy with previous ejection fractions of around 20%. He has multiple medical problems including and not limited to COPD, peripheral arterial disease, hypertension, coronary artery disease, CVA in the past. He does carry a diagnosis of chronic kidney disease with his creatinine in the upper 1, lower 2 range. He was brought to his family and while in the car, he started to have some shortness of breath and on arrival to the emergency room, he was found to be in a pulseless electrical activity. CPR was initiated. It looks like that he received 3 rounds of epinephrine, 1 amp of bicarb and buddhism of his circulation. He was intubated on arrival. He was then moved to the ICU. The patient had some issues with his blood pressure. All through the last few days were extreme low blood pressure readings. He received couple of doses of Lasix with clearing of his pulmonary edema from the chest x-ray. His creatinine has been on the rise as expected after the cardiac event. He is not able to provide me with any history as he is currently intubated. I am being asked to manage his chronic kidney disease and acute on top of chronic kidney disease injury. PAST MEDICAL HISTORY: 1. As stated above, chronic kidney disease. 2. Hypertension. 3. Cardiomyopathy with a very bad ejection fraction of about 20%. 4. Remote history of CVA. 5. Seems to be what was described as left atrial thrombus. MEDICATIONS: On arrival included the followin. Plavix. 2. Warfarin. 3. Carvedilol. 4. Lisinopril. 5. Lasix. ALLERGIES: No listed drug allergies. FAMILY HISTORY: Significant for coronary artery disease with strong family history of disease. [facility] [address] [place] [address] CONSULTATION Name: VALDEZ WALTER [place] Room #: 206-P [facility] IN ..#: [id number] Admission: 10/26/16 Attend Phys: Georges Henriquez MD Discharge: Date of : 47 Report #: [id number] SOCIAL HISTORY: No reported drug or alcohol abuse in medical charts, however, the patient is currently not able to provide me with personal information. REVIEW OF SYSTEMS: Unobtainable given the fact that the patient is currently intubated with no family members around. PHYSICAL EXAMINATION; GENERAL: The patient is intubated. Pulse rate was running in the 70 range. Currently, he is maintained on Levophed, propofol, milrinone. ET tube in place. CHEST: No crackles. CARDIOVASCULAR: No rub detected. ABDOMEN: Soft, nontender with no hepatosplenomegaly. LOWER EXTREMITIES: No edema. LABORATORY VALUES: Reviewed. As I have stated, his creatinine is up to 2.8. Chest x-ray in the last 2 days and chest x-ray from today were reviewed. ASSESSMENT, IMPRESSION AND PLAN: 1. Acute kidney injury status post cardiac arrest. 2. Chronic kidney disease with a baseline creatinine of around 2. 3. Cardiomyopathy advanced with ejection fractions of around 20%. 4. Coronary artery disease. 5. Post-cardiac arrest. 6. Chronic obstructive pulmonary disease. 7. Acute kidney injury is well expected after his arrest. 8. He did make some urine and there seems to be clearing of his chest x-ray findings. I asked the nurses to give him another dose of Lasix today and to back off the Lasix since there had been some significant improvement in his chest x-ray finding. 9. Wean off milrinone. 10. Strict input and output. 11. Continue vent support. 12. Cardiology is managing his arrest, post arrest medications. 13. Remains to be in a very critical and sick condition. 14. Avoid nephrotoxins. 15. Repeat labs in the morning. As usual, it is my pleasure to evaluate your patient. Should you have any question, please do not hesitate to call me. <ELECTRONICALLY SIGNED> By: Robin Quinteros MD 11/03/16 1640 1136 0005 Robin Quinteros MD /nt
[~2016-10-26 10:14] MED LIST changes: +BRILINTA90 MG PO; +CARVEDILOL3.125 MG PO; +CLOPIDOGREL75 MG PO; +COREG6.25 MG PO; +COUMADIN 5 MG TA5 M1 PO; +LASIX 20 MG TAB20 MG PO; +LASIX 40 MG TAB40 M2 PO; +LISINOPRIL2.5 MG PO; +POTASSIUM20 PO; +PROTONIX40 M1 PO
[2016-10-26 10:20] LABS: ABG SAMPLE TYPE ARTERIAL; BE(vivo) -24.8 mmol/L (-2 to +3); HCO3 11.2 mmol/L (22.0-26.0); O2(CT) 20.4 mL/dL (15.0-23.0); O2Hb 96.3 % (92.0-98.0); PO2 221.6 mmHg (80.0-100.0); sO2 98.4 % (92.0-98.0); tCO2 13.5 mmol/L (24.0-30.0)
[2016-10-26 10:21] LABS: LACTATE 16.88 mmol/L (0.5-2.0); PCO2 75.8 mmHg (35.0-45.0); STICK SITE L.FEMORAL; pH 6.787 (7.360-7.450)
[2016-10-26 10:25] LABS: ABG COMMENT CODE BLUE
[2016-10-26 10:41] LABS: HEMATOCRIT 44.8 % (42.0-52.0); MANUAL DIFF YES; MCH 28.6 pg (26.0-34.0); MCHC 31.3 g/dL (28.0-37.0); MCV 91.5 fL (80.0-100.0); PLATELET COUNT 170 thou/uL (150-400); RBC 4.89 mil/uL (4.50-6.00); RDW 17.1 % (10.5-14.5); WBC 12.7 thou/uL (4.0-11.0)
[2016-10-26 10:44] LABS: CALCIUM 8.9 mg/dL (8.5-10.1); CREATININE 1.9 mg/dL (0.7-1.3); POTASSIUM 5.3 mmol/L (3.5-5.1)
[2016-10-26 10:53] LABS: INR 1.8
[2016-10-26 10:55] LABS: APTT 42.2 Seconds (24.5-32.8); PROTIME 18.7 Seconds (9.3-11.4)
[2016-10-26 10:57] LABS: TROPONIN-I 0.05 ng/mL (<0.04-0.07)
[2016-10-26 11:06] LABS: ABSOLUTE NEUTROPHILS 5.7 thou/uL (1.4-8.2); ANISOCYTOSIS 1+; PLATELET ESTIMATE NORMAL; TOTAL CELL COUNT 100
[2016-10-26 11:55] LABS: ABG SAMPLE TYPE ARTERIAL; BE(vivo) -14.5 mmol/L (-2 to +3); HCO3 16.1 mmol/L (22.0-26.0); LACTATE 6.74 mmol/L (0.5-2.0); O2(CT) 18.1 mL/dL (15.0-23.0); O2Hb 89.8 % (92.0-98.0); PCO2 57.6 mmHg (35.0-45.0); PO2 85.7 mmHg (80.0-100.0); STICK SITE R.RADIAL; pH 7.064 (7.360-7.450); sO2 91.7 % (92.0-98.0); tCO2 17.9 mmol/L (24.0-30.0)
[2016-10-26 11:57] LABS: TIDAL VOLUME 550 ml
[2016-10-26 13:28] LABS: ABG SAMPLE TYPE ARTERIAL; BE(vivo) -13.3 mmol/L (-2 to +3); HCO3 15.5 mmol/L (22.0-26.0); O2(CT) 18.8 mL/dL (15.0-23.0); O2Hb 91.7 % (92.0-98.0); PCO2 46.9 mmHg (35.0-45.0); PO2 85.4 mmHg (80.0-100.0); STICK SITE R.RADIAL; TIDAL VOLUME 550 ml; pH 7.138 (7.360-7.450); sO2 93.2 % (92.0-98.0)
[2016-10-26 20:06] LABS: ABG SAMPLE TYPE ARTERIAL; BE(vivo) -7.7 mmol/L (-2 to +3); HCO3 18.2 mmol/L (22.0-26.0); LACTATE 1.72 mmol/L (0.5-2.0); O2(CT) 19.3 mL/dL (15.0-23.0); O2Hb 94.7 % (92.0-98.0); PCO2 38.3 mmHg (35.0-45.0); PO2 78.5 mmHg (80.0-100.0); sO2 94.4 % (92.0-98.0); tCO2 19.3 mmol/L (24.0-30.0)
[2016-10-26 20:07] LABS: STICK SITE R.RADIAL; TIDAL VOLUME 550 ml; pH 7.294 (7.360-7.450)
[2016-10-27] VITALS (50 sets, daily range): BP systolic 65–145; BP diastolic 32–86
[2016-10-27 03:20] LABS: HEMATOCRIT 40.8 % (42.0-52.0); HEMOGLOBIN 13.6 gm/dL (14.0-18.0); MCH 28.3 pg (26.0-34.0); MCHC 33.3 g/dL (28.0-37.0); PLATELET COUNT 180 thou/uL (150-400); RBC 4.79 mil/uL (4.50-6.00); RDW 15.6 % (10.5-14.5); WBC 14.9 thou/uL (4.0-11.0)
[2016-10-27 03:21] LABS: MCV 85.1 fL (80.0-100.0)
[2016-10-27 03:22] LABS: MANUAL DIFF YES
[2016-10-27 03:39] LABS: CALCIUM 8.2 mg/dL (8.5-10.1); CREATININE 2.3 mg/dL (0.7-1.3); POTASSIUM 4.5 mmol/L (3.5-5.1); TOTAL BILIRUBIN 0.6 mg/dL (<0.1-1.0); TOTAL PROTEIN 6.7 g/dL (6.4-8.2)
[2016-10-27 04:54] LABS: ABG SAMPLE TYPE ARTERIAL; BE(vivo) -6.4 mmol/L (-2 to +3); HCO3 17.5 mmol/L (22.0-26.0); LACTATE 2.09 mmol/L (0.5-2.0); O2(CT) 18.8 mL/dL (15.0-23.0); O2Hb 98.4 % (92.0-98.0); PCO2 30.6 mmHg (35.0-45.0); PO2 225.4 mmHg (80.0-100.0); pH 7.376 (7.360-7.450); sO2 99.5 % (92.0-98.0); tCO2 18.5 mmol/L (24.0-30.0)
[2016-10-27 04:55] LABS: STICK SITE R.RADIAL; TIDAL VOLUME 550 ml
[2016-10-27 10:42] LABS: ABSOLUTE NEUTROPHILS 13.4 thou/uL (1.4-8.2); ATYPICAL LYMPHS 2 %; TOTAL CELL COUNT 100
[2016-10-27 10:43] LABS: ANISOCYTOSIS SLIGHT; POLYCHROMASIA OCCASIONAL
[2016-10-28] VITALS (17 sets, daily range): BP systolic 61–146; BP diastolic 45–74
[2016-10-28 02:58] LABS: HEMATOCRIT 37.2 % (42.0-52.0); HEMOGLOBIN 12.4 gm/dL (14.0-18.0); MCH 27.9 pg (26.0-34.0); MCHC 33.4 g/dL (28.0-37.0); MCV 83.7 fL (80.0-100.0); PLATELET COUNT 171 thou/uL (150-400); RBC 4.45 mil/uL (4.50-6.00); RDW 15.1 % (10.5-14.5)
[2016-10-28 02:59] LABS: MANUAL DIFF YES
[2016-10-28 03:15] LABS: ALBUMIN 2.9 g/dL (3.4-5.0); CALCIUM 8.6 mg/dL (8.5-10.1); CREATININE 2.8 mg/dL (0.7-1.3); MAGNESIUM 1.5 mg/dL (1.8-2.4); POTASSIUM 3.8 mmol/L (3.5-5.1); TOTAL BILIRUBIN 0.8 mg/dL (<0.1-1.0); TOTAL PROTEIN 6.7 g/dL (6.4-8.2)
[2016-10-28 05:03] LABS: ABG SAMPLE TYPE ARTERIAL; BE(vivo) -4.3 mmol/L (-2 to +3); HCO3 20.7 mmol/L (22.0-26.0); LACTATE 2.37 mmol/L (0.5-2.0); O2(CT) 17.5 mL/dL (15.0-23.0); O2Hb 97.2 % (92.0-98.0); PCO2 37.9 mmHg (35.0-45.0); PO2 120.2 mmHg (80.0-100.0); STICK SITE LINE; pH 7.355 (7.360-7.450); sO2 98.2 % (92.0-98.0); tCO2 21.9 mmol/L (24.0-30.0)
[2016-10-28 05:04] LABS: TIDAL VOLUME 550 ml
[2016-10-28 05:22] LABS: ABSOLUTE NEUTROPHILS 12.2 thou/uL (1.4-8.2); ANISOCYTOSIS SLIGHT; TOTAL CELL COUNT 100
[2016-10-29] VITALS (24 sets, daily range): BP systolic 82–149; BP diastolic 53–83
[2016-10-29 03:41] LABS: CALCIUM 8.7 mg/dL (8.5-10.1); CREATININE 2.5 mg/dL (0.7-1.3); MAGNESIUM 1.5 mg/dL (1.8-2.4); POTASSIUM 3.6 mmol/L (3.5-5.1)
[2016-10-29 05:17] LABS: ABG SAMPLE TYPE ARTERIAL; BE(vivo) -1.4 mmol/L (-2 to +3); HCO3 21.9 mmol/L (22.0-26.0); LACTATE 1.92 mmol/L (0.5-2.0); O2(CT) 15.5 mL/dL (15.0-23.0); O2Hb 95.8 % (92.0-98.0); PO2 91.2 mmHg (80.0-100.0); pH 7.453 (7.360-7.450); sO2 97.4 % (92.0-98.0); tCO2 22.9 mmol/L (24.0-30.0)
[2016-10-29 05:18] LABS: STICK SITE LINE; TIDAL VOLUME 550 ml
[2016-10-29 13:26] LABS: POC CA IONIZED 4.6 mg/dL (4.5-5.3); POC CREATININE 1.5 mg/dL (0.6-1.3); POC POTASSIUM 5.1 mmol/L (3.5-5.1)
[2016-10-29 17:24] LABS: HEMATOCRIT 32.9 % (42.0-52.0); MANUAL DIFF YES; MCH 28.3 pg (26.0-34.0); MCHC 33.5 g/dL (28.0-37.0); MCV 84.4 fL (80.0-100.0); PLATELET COUNT 150 thou/uL (150-400); RBC 3.89 mil/uL (4.50-6.00); WBC 18.1 thou/uL (4.0-11.0)
[2016-10-29 17:39] LABS: URINE BILIRUBIN NEGATIVE (Negative); URINE BLOOD 3+ (Negative); URINE COLOR YELLOW; URINE GLUCOSE-RANDOM* NEGATIVE (Negative); URINE KETONES NEGATIVE (Negative); URINE LEUKOCYTES-REFLEX 3+ (Negative); URINE PROTEIN (DIPSTICK) TRACE (Negative); URINE SPECIFIC GRAVITY 1.015 (1.003-1.035); URINE UROBILINOGEN 0.2 E.U./dl (0.2-1.0)
[2016-10-29 17:45] LABS: SQUAMOUS None Seen /LPF (0-3); URINE WBC-REFLEX 6-15 Few /HPF (0-5)
[2016-10-29 17:47] LABS: ABSOLUTE NEUTROPHILS 15.2 thou/uL (1.4-8.2); ANISOCYTOSIS 1+; TOTAL CELL COUNT 100
[2016-10-29 17:47] LABS: AMORPHOUS URATES Moderate /LPF (None Seen); CASTS None Seen /LPF (None Seen)
[2016-10-30] VITALS (18 sets, daily range): BP systolic 85–147; BP diastolic 48–78
[2016-10-30 05:17] LABS: ABG SAMPLE TYPE ARTERIAL; BE(vivo) -0.1 mmol/L (-2 to +3); HCO3 23.4 mmol/L (22.0-26.0); LACTATE 1.96 mmol/L (0.5-2.0); O2(CT) 16.4 mL/dL (15.0-23.0); O2Hb 95.9 % (92.0-98.0); PCO2 34.2 mmHg (35.0-45.0); pH 7.453 (7.360-7.450); sO2 97.3 % (92.0-98.0); tCO2 24.4 mmol/L (24.0-30.0)
[2016-10-30 05:18] LABS: ABG COMMENT A/C MODE; STICK SITE LINE; TIDAL VOLUME 550 ml
[2016-10-30 05:36] LABS: HEMATOCRIT 33.7 % (42.0-52.0); HEMOGLOBIN 11.3 gm/dL (14.0-18.0); MCH 27.8 pg (26.0-34.0); MCHC 33.5 g/dL (28.0-37.0); RBC 4.06 mil/uL (4.50-6.00); WBC 13.7 thou/uL (4.0-11.0)
[2016-10-30 06:13] LABS: ALBUMIN 2.6 g/dL (3.4-5.0); CREATININE 2.5 mg/dL (0.7-1.3); PHOSPHORUS 4.3 mg/dL (2.5-4.9); POTASSIUM 3.3 mmol/L (3.5-5.1)
[2016-10-30 13:21] LABS: ABG SAMPLE TYPE ARTERIAL; BE(vivo) -0.4 mmol/L (-2 to +3); LACTATE 1.43 mmol/L (0.5-2.0); O2(CT) 16.8 mL/dL (15.0-23.0); PO2 110.3 mmHg (80.0-100.0); pH 7.449 (7.360-7.450); sO2 98.3 % (92.0-98.0); tCO2 24.1 mmol/L (24.0-30.0)
[2016-10-30 13:22] LABS: ABG COMMENT CPAP X 1HR.; Pressure Support 8 cm H20; STICK SITE LINE
[2016-10-31] VITALS (9 sets, daily range): BP systolic 68–141; BP diastolic 47–79
[2016-10-31 06:45] LABS: HEMATOCRIT 33.8 % (42.0-52.0); HEMOGLOBIN 11.4 gm/dL (14.0-18.0); MCH 28.1 pg (26.0-34.0); MCHC 33.8 g/dL (28.0-37.0); MCV 83.2 fL (80.0-100.0); RBC 4.06 mil/uL (4.50-6.00); RDW 15.3 % (10.5-14.5); WBC 12.8 thou/uL (4.0-11.0)
[2016-10-31 07:00] LABS: ALBUMIN 2.5 g/dL (3.4-5.0); CALCIUM 9.3 mg/dL (8.5-10.1); CREATININE 2.3 mg/dL (0.7-1.3); PHOSPHORUS 4.7 mg/dL (2.5-4.9); POTASSIUM 3.8 mmol/L (3.5-5.1)
[2016-10-31 09:23] LABS: ABG SAMPLE TYPE ARTERIAL; BE(vivo) -0.2 mmol/L (-2 to +3); HCO3 23.3 mmol/L (22.0-26.0); LACTATE 1.34 mmol/L (0.5-2.0); O2(CT) 16.2 mL/dL (15.0-23.0); O2Hb 96.3 % (92.0-98.0); PCO2 34.4 mmHg (35.0-45.0); PO2 97.3 mmHg (80.0-100.0); pH 7.449 (7.360-7.450); sO2 97.7 % (92.0-98.0); tCO2 24.4 mmol/L (24.0-30.0)
[2016-10-31 09:24] LABS: ABG COMMENT CPAP X 1 HR; Pressure Support 6 cm H20; STICK SITE R.RADIAL
[2016-10-31 10:04] LABS: ALBUMIN 2.5 g/dL (3.4-5.0); CREATININE 2.2 mg/dL (0.7-1.3); POTASSIUM 3.5 mmol/L (3.5-5.1)
[2016-11-01] VITALS (20 sets, daily range): BP systolic 107–163; BP diastolic 64–144
[2016-11-01 04:25] LABS: CALCIUM 9.3 mg/dL (8.5-10.1); POTASSIUM 3.5 mmol/L (3.5-5.1)
[2016-11-01 04:31] LABS: HEMATOCRIT 34.4 % (42.0-52.0); HEMOGLOBIN 11.7 gm/dL (14.0-18.0); MCH 28.5 pg (26.0-34.0); MCHC 33.9 g/dL (28.0-37.0); RBC 4.09 mil/uL (4.50-6.00); RDW 15.3 % (10.5-14.5); WBC 8.4 thou/uL (4.0-11.0)
[2016-11-02 02:41] LABS: HEMATOCRIT 36.4 % (42.0-52.0); HEMOGLOBIN 12.2 gm/dL (14.0-18.0); MCH 28.1 pg (26.0-34.0); MCHC 33.5 g/dL (28.0-37.0); MCV 83.8 fL (80.0-100.0); RBC 4.35 mil/uL (4.50-6.00); RDW 14.9 % (10.5-14.5); WBC 8.9 thou/uL (4.0-11.0)
[2016-11-02 02:58] LABS: ALBUMIN 2.7 g/dL (3.4-5.0); CALCIUM 9.6 mg/dL (8.5-10.1); CREATININE 1.8 mg/dL (0.7-1.3); PHOSPHORUS 3.2 mg/dL (2.5-4.9); POTASSIUM 3.7 mmol/L (3.5-5.1)
[2016-11-02 03:16] VITALS: BP 160/87
[2016-11-02 08:03] VITALS: BP 156/100
[2016-11-02 12:24] VITALS: BP 167/97
[2016-11-02 15:50] VITALS: BP 138/85
[2016-11-02 19:28] VITALS: BP 145/81
[2016-11-03 04:58] VITALS: BP 139/85
[2016-11-03 05:46] LABS: HEMATOCRIT 38.1 % (42.0-52.0); HEMOGLOBIN 12.6 gm/dL (14.0-18.0); MCV 84.9 fL (80.0-100.0); PLATELET COUNT 310 thou/uL (150-400); RBC 4.49 mil/uL (4.50-6.00); RDW 15.5 % (10.5-14.5); WBC 12.1 thou/uL (4.0-11.0)
[2016-11-03 05:53] LABS: MANUAL DIFF YES
[2016-11-03 05:57] LABS: CALCIUM 9.8 mg/dL (8.5-10.1); CREATININE 1.8 mg/dL (0.7-1.3); PHOSPHORUS 5.3 mg/dL (2.5-4.9); POTASSIUM 3.9 mmol/L (3.5-5.1)
[2016-11-03 07:05] VITALS: BP 118/85
[2016-11-03 08:28] LABS: ABSOLUTE NEUTROPHILS 7.7 thou/uL (1.4-8.2); TOTAL CELL COUNT 100
[2016-11-03 11:45] VITALS: BP 138/82
[2016-11-03 16:15] VITALS: BP 135/85
[2016-11-03 20:00] VITALS: BP 106/63
[2016-11-04 04:20] VITALS: BP 128/77
[2016-11-04 04:52] LABS: HEMATOCRIT 34.2 % (42.0-52.0); HEMOGLOBIN 11.3 gm/dL (14.0-18.0); MCH 27.8 pg (26.0-34.0); MCV 84.4 fL (80.0-100.0); RBC 4.05 mil/uL (4.50-6.00); RDW 15.2 % (10.5-14.5); WBC 12.7 thou/uL (4.0-11.0)
[2016-11-04 05:04] LABS: ALBUMIN 2.6 g/dL (3.4-5.0); CALCIUM 9.8 mg/dL (8.5-10.1); CREATININE 1.6 mg/dL (0.7-1.3); PHOSPHORUS 4.9 mg/dL (2.5-4.9); POTASSIUM 3.9 mmol/L (3.5-5.1)
[2016-11-04 07:15] VITALS: BP 146/88
[2016-11-04 11:30] VITALS: BP 149/76
[2016-11-04 17:05] VITALS: BP 123/79
[2016-11-04 19:43] VITALS: BP 144/82
[2016-11-05 03:55] VITALS: BP 156/101
[2016-11-05 05:21] LABS: ALBUMIN 2.5 g/dL (3.4-5.0); CALCIUM 9.6 mg/dL (8.5-10.1); CREATININE 1.4 mg/dL (0.7-1.3); PHOSPHORUS 4.1 mg/dL (2.5-4.9); POTASSIUM 3.8 mmol/L (3.5-5.1)
[2016-11-05 08:00] VITALS: BP 147/89
[2016-11-05 11:30] VITALS: BP 124/75
[2016-11-05 16:20] VITALS: BP 113/70
[2016-11-05 19:49] VITALS: BP 114/64
[2016-11-06 03:04] VITALS: BP 104/56
[2016-11-06 04:33] LABS: ALBUMIN 2.6 g/dL (3.4-5.0); CALCIUM 8.9 mg/dL (8.5-10.1); CREATININE 1.5 mg/dL (0.7-1.3); PHOSPHORUS 4.2 mg/dL (2.5-4.9); POTASSIUM 4.1 mmol/L (3.5-5.1)
[2016-11-06 07:55] VITALS: BP 138/65
[2016-11-06 11:40] VITALS: BP 104/67
== END 2016-11-06 14:07 | DRG 870 ==
LOC: ER 10:14 → ICU 10:59 → EROBS 10:59 → ICU 15:18 → 2N 11-01 20:07
PROVIDERS: Emergency Medicine; Hospitalist; Internal Medicine Nephrology; Internal Medicine Pulmonary Disease
PROC: 02HV33Z Insertion of Infusion Device into Superior Vena Cava, Percutaneous Approach (ICD-10-PCS; principal; 2016-10-26)
PROC: 0BH17EZ Insertion of Endotracheal Airway into Trachea, Via Natural or Artificial Opening (ICD-10-PCS; principal; 2016-10-26)
PROC: 5A1955Z Respiratory Ventilation, Greater than 96 Consecutive Hours (ICD-10-PCS; principal; 2016-10-26)
PROC: 04HK33Z Insertion of Infusion Device into Right Femoral Artery, Percutaneous Approach (ICD-10-PCS; 2016-10-27)
DX: A41.9 Sepsis, unspecified organism (principal); J96.22 Acute and chronic respiratory failure with hypercapnia; J69.0 Pneumonitis due to inhalation of food and vomit; I50.23 Acute on chronic systolic (congestive) heart failure; J15.6 Pneumonia due to other Gram-negative bacteria; I46.9 Cardiac arrest, cause unspecified; J96.21 Acute and chronic respiratory failure with hypoxia; I13.0 Hypertensive heart and chronic kidney disease with heart failure and stage 1 through stage 4 chronic kidney disease, or unspecified chronic kidney disease; E87.0 Hyperosmolality and hypernatremia; N17.9 Acute kidney failure, unspecified; I82.90 Acute embolism and thrombosis of unspecified vein; N39.0 Urinary tract infection, site not specified; E87.5 Hyperkalemia; I25.10 Atherosclerotic heart disease of native coronary artery without angina pectoris; J44.9 Chronic obstructive pulmonary disease, unspecified; I73.9 Peripheral vascular disease, unspecified; E78.5 Hyperlipidemia, unspecified; F17.210 Nicotine dependence, cigarettes, uncomplicated; N18.9 Chronic kidney disease, unspecified; I25.5 Ischemic cardiomyopathy; B96.20 Unspecified Escherichia coli [E. coli] as the cause of diseases classified elsewhere; I95.9 Hypotension, unspecified; Z95.5 Presence of coronary angioplasty implant and graft; Z98.41 Cataract extraction status, right eye; I25.2 Old myocardial infarction; Z86.73 Personal history of transient ischemic attack (TIA), and cerebral infarction without residual deficits; Z79.01 Long term (current) use of anticoagulants; Z79.02 Long term (current) use of antithrombotics/antiplatelets; Z79.899 Other long term (current) drug therapy; Z82.49 Family history of ischemic heart disease and other diseases of the circulatory system
CPT/HCPCS: 10078; 10081; 27000; 82310

== ENCOUNTER 2016-11-06 08:28 | Inpatient (IN) | payer OTHER ==
[~2016-11-06] VITALS: Ht 167.6 cm; Wt 74.2 kg
--- NOTE | ~2016-11-06 | H ---
[facility] [place] [address] HISTORY AND PHYSICAL Name: VALDEZ WALTER Room #: 514-P [facility] IN M.R.#: [id number] Admission: 11/06/16 Attend Phys: Antonio Robert MD Discharge: Date of : 46 Report #: [id number] THIS REPORT FOR: //name// CC: Antonio Doll DATE OF SERVICE: 11/07/2016 HISTORY OF PRESENT ILLNESS: The patient is a 71-year-old male admitted to the emergency department originally with hypertension, elevated lipids, CVA and coronary artery disease status post PCI with worsening shortness of breath. He was noted to go in to a full-blown cardiopulmonary arrest with pulseless electrical activity, asystole, was intubated, noted to have ST elevation per EKG. He was mechanically ventilated. He was followed closely by cardiology and pulmonary medicine and nephrology. Neurology saw him and CT scan showed a stroke, left temporal occipital noted to be an evolving stroke. The patient was considered for an implantable cardiac defibrillator, but apparently has refused this. He was felt to be medically ready for acute inpatient rehab and has been admitted now to the inpatient rehab [facility]. PAST MEDICAL HISTORY: Includes a prior CVA, left posterior temporal occipital back in 08/2016. He was on the inpatient rehab [facility], he did progress to the point where he was ambulating 500 feet standby assistance and had improved right-sided coordination. His past history also includes hypertension, hyperlipidemia, ST elevation RI, stenting of the LAD and ischemic cardiomyopathy, history of hypertension, cataracts, hyperlipidemia and COPD. MEDICATIONS: Please see the full medication listing. HABITS: Prior every day smoker prior to admission smoked cigarettes, was noted to smoke 1 pack per day for 50 years. There is a history of some alcohol usage, although I am uncertain exactly how much. ALLERGIES: No known drug allergies. SOCIAL HISTORY: Lives with his daughter and his son in an apartment, 6 steps in. He has a cane and a walker, which he typically does not use. His family works during the day and he is home alone. Family apparently could provide 24-hour supervision if warranted. REVIEW OF SYSTEMS: No current complaints of chest pain, shortness of breath or abdominal discomfort. No complaints to specific extremity pain. His main complaint is his hoarse voice, which I discussed with him was related to his time of intubation. There are concerns regarding swallowing noted as well. [address] [address] HISTORY AND PHYSICAL Name: VALDEZ WALTER Room #: 514-P [facility] IN .R.#: [id number] Admission: 11/06/16 Attend Phys: Antonio Robert MD Discharge: Date of : 46 Report #: [id number] PHYSICAL EXAMINATION: GENERAL: A 71-year-old slender -Malawian male in no obvious distress. VITAL SIGNS: Last recorded temperature 97.6, pulse 90, respirations 16 and blood pressure 145/87. HEENT: Appeared to be benign other than the hoarse voice. Facies were symmetric. He does have poor dentition. EOMs are full. He is verbalizing better, although he does have a hoarse voice. CHEST: Sounded clear to auscultation. CARDIAC: Regular rate and rhythm. ABDOMEN: Bowel sounds positive, nontender. NEUROLOGIC: Follows basic 1 step commands without difficulty. He has functional range of motion of the left upper and left lower extremity with strength grade 4-/5. Right upper extremity strength is a grade 3+/5, right lower extremity is 3+. He is diffusely weak upper and lower extremities with weakness more involving the right upper and right lower. DTRs are trace to 1. No focal calf swelling with no distal lower extremity edema. Functionally, he has been needing minimum assistance with basic transfers. He is more of a contact guard now, is improving with short distance ambulation. ASSESSMENT: A 71-year-old white male with the following problem list: 1. Left temporal occipital CVA with questionable frontal lobe CVA per neurology. 2. Rule out concurrent hypoxic encephalopathy with his cardiac arrest. 3. Cardiac arrest: He has been considered for an implantable cardiac defibrillator. 4. Ischemic cardiomyopathy with prior percutaneous coronary intervention with acute on chronic congestive heart failure exacerbation. 5. ____ arrest which have resolved. 6. Systolic heart failure, acute on chronic. 7. Severe dysphagia, which has improved. Speech therapy is following him and current recommendations are for pureed honey thick. We are utilizing electrical stimulation/vital stimulation. 8. Hypertension. 9. Hyperlipidemia. 10. Acute on chronic renal insufficiency. 11. History of left ventricular thrombus. 12. Prior history of a left medial posterior, temporal and occipital infarct. PLAN: The patient is admitted for acute in-hospital inpatient rehabilitation. From a postadmission physician evaluation perspective, there are no relevant changes since the preadmission screening. Please see the above review of prior and current medical and functional conditions and comorbidities. Please see the patient's prior and current functional status. As far as risk of complications, he does have the above noted medical comorbidities. Initial plan of care involves the interdisciplinary acute inpatient rehabilitation program. Measurable functional goals would be for him to improve as far as his swallowing [address] [address] HISTORY AND PHYSICAL Name: VALDEZ WALTER Room #: 514-P ADM IN M.R.#: [id number] Admission: 11/06/16 Attend Phys: Antonio Robert MD Discharge: Date of : 46 Report #: [id number] and also to become independent with basic mobility and ADLs and to improve as far as cognition. Prognosis is reasonably good with estimated length of stay probably at least 10 days to 2 weeks pending progress. His swallowing is definitely severely impaired and he has the other cognitive and functional deficits. He meets diagnostic criteria for an acute in-hospital inpatient rehabilitation stay. He meets medical necessity criteria, and we will have the multiple portfolio consultant physicians continue to follow along with him. He does have the tolerance for an acute rehab program and has appropriate discharge goals back to the home setting. <ELECTRONICALLY SIGNED> By: Antonio Robert MD 11/14/16 1528 1216 1609 Antonio Robert MD /nt
--- NOTE | ~2016-11-06 | EKG ---
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1945 Requested By: Monik Best Order Number: [id number] MD: Sebastián Claudio Measurements Intervals [place] Rate: 107 P: 57 VT: 118 QRS: 55 QRSD: 96 T: 201 QT: 302 QTc: 403 Interpretive Statements Sinus tachycardia Probable LVH with secondary repol abnrm Anterior ST elevation, probably due to LVH Baseline wander in lead(s) V5,V6 Compared to ECG 10/26/2016 10:17:58 Left ventricular hypertrophy now present Electronically Signed On 11-11-2016 22:44:28 CDT by Sebastián Claudio [email or web address] <ELECTRONICALLY SIGNED> By: Sebastián Claudio MD 11/11/16 2244 25 25 Sebastián Claudio MD /EPI
--- NOTE | ~2016-11-06 | HC ---
[facility] [place] [address] CONSULTATION Name: VALDEZ WALTER Room #: 514-P [facility] IN M.R.#: [id number] Admission: 11/06/16 Attend Phys: Antonio Robert MD Discharge: Date of : 46 Report #: [id number] THIS REPORT FOR: //name// CC: Antonio Doll DATE OF SERVICE: 11/09/2016 ATTENDING PHYSICIAN: Antonio Robert M.D. REEL AND REWINDER OPERATOR: Kristian Miner, PhD CLINICAL PRESENTATION: The patient is a 71-year-old male admitted to the rehabilitation unit at [facility] for a comprehensive inpatient rehabilitation program to improve functional mobility, activities of daily living and self-care and mental status secondary to deficits from a cardiopulmonary arrest with pulseless electrical activity. Additionallly, a CT scan of his head revealed a evolving CVA in the left temporal occipital region. Upon his initial admiision for acute care, he was mechanically ventilated and monitored closely by Cardiology, Pulmonary medicine and nephrology. The patient had an inpatient rehabilitation program following his a stroke in 08/2016. He was then discharged home to live with his son and daughter. The patient is a high school graduate. He worked in [employer] prior to his longterm. He has a concern about excessive alcohol use, was present during his earlier admission. TECHNIQUES UTILIZED: Clinical interview, review of medical records, staff consultation and behavioral observation, mini mental status exam to standard version, clock drawing and category fluency assessment. EXAMINATION FINDINGS: The patient was alert and cooperative with the assessment. He accurately described events surrounding his admission. There is no evidence of aphasia. He presents with diminished vocal volume. He whisper when engaged in generative speech. His symptoms are primarily related to sleep. He does not report difficulty with cognitive function, mood or behavior. His performance on the MMSE 2 brief version was extremely low with a raw score of 10 of 16, which is a T score of 13. The patient was 3/3 for initial registration, 2/5 for orientation at time, 4/[address] and 1/3 for immediate recall of 3 items after a brief time delay and distraction. His performance on the MMSE 2 standard version was extremely low with a raw score of 17 of 30. He was 0/5 for serial 7's, 2/2 for naming, 1/1 for repetition. He could read and follow single command. The patient was unable to [facility] [address] [place] [address] CONSULTATION Name: VALDEZ WALTER SOFI Room #: 514-P [facility] IN ..#: [id number] Admission: 11/06/16 Attend Phys: Antonio Robert MD Discharge: Date of : 46 Report #: [id number] write a sentence. He also could not copy a simple geometric design. Suggested by his performance is an apraxia that interferes with initiative and purposeful behavior. Indicated is frontal dysfuncition that is related to his CVA. Category fluency was a raw score 6, which is extremely low. Evidence of perseveration was noted on category fluency, suggesting deficits in thought organization, semantic memory and expressive speech. The patient was 2 of 8 on a brief test of abstract reasoning. He also was unable to draw a clock and set the hands at a designated time. Placement of numbers suggest perseverative functioning along with disorganization. DIAGNOSTIC IMPRESSION: Major neurocognitive disorder (dementia), likely due to vascular disease and hypoxia, without behavior disorder, severe at this time (extent to be determined). RECOMMENDATIONS: The patient continues to require 24-hour care that includes supervision in the management of his behavior to maintain safety. He will need assistance with medication, nutrition and patient financial services specialist. During his rehabilitation stay it will be necessary to have frequent repetition for him to maintain new learning. The use of written instructions may be of benefit to assist his recall of therapy objectives and instructions when discharged. A well structured and consistent routine will assist overall adjustment. Thank you very much for allowing me to provide the consultation on this patient. <ELECTRONICALLY SIGNED> By: Kristian Miner, PhD 11/10/16 1546 1543 0322 Kristian Miner, PhD /nt
--- NOTE | ~2016-11-06 | PLAN ---
[facility] [place] [address] REHAB UNIT PLAN OF CARE Name: VALDEZ WALTER Room #: 514-P ADM IN M.R.#: [id number] Admission: 11/06/16 Attend Phys: Antonio Robert MD Discharge: Date of : 46 Report #: [id number] THIS REPORT FOR: //name// CC: Antonio Doll The patient is seen back today in followup. He is in no distress. Last recorded temperature is 98.6, pulse 106, respirations 18, and blood pressure 131/79. He is working in therapies with transfers improved to a contact guard assist level. He is ambulating 500 feet contact guard without a gait aid. He has started working on steps. Lower body dressing is moderate assistance, socks and hose are min assist. In speech therapy, he has brtv-fw-mestbieu comprehensive deficits, which is an improvement. He is on a pureed diet with honey thickened liquids. ASSESSMENT: 1. Left temporal and occipital cerebrovascular accident with questionable frontal lobe cerebrovascular accident per neurology. 2. Rule out concurrent hypoxic encephalopathy with his cardiac arrest. 3. Ischemic cardiomyopathy with prior percutaneous coronary intervention with acute on chronic congestive heart failure. 4. Systolic heart failure acute on chronic. 5. Severe dysphagia, pureed honey-thickened liquids. 6. Hypertension. 7. Hyperlipidemia. 8. Acute on chronic renal insufficiency. 9. History of left ventricular thrombus. PLAN: The overall plan of care is based on the preadmission screen, post-admission physician evaluation and information garnered from therapy assessments. 1. Estimated length of stay is probably fairly short may be 10 days to 2 weeks and potentially longer as needed. His swallowing is significantly involved, but he is improving with his mobility. 2. Medical prognosis is reasonably good. 3. Anticipated interventions includes the interdisciplinary acute inpatient rehabilitation program with PT, OT and speech, rehab nursing assisting regarding medication management, skin care prophylaxis, bowel and bladder issues and nursing education. Case management involved and the multiple rural health consultant physicians. 4. Anticipated functional outcomes would be for the patient to become modified independent with transfers, mobility and ADLs as well as improving with his swallowing, so that he can return back to the home setting. 5. Discharge destination would be back home where he lives with his daughter and son in an apartment. 6. Expected therapy by discipline includes PT, OT and speech 1 hour per day [address] [address] REHAB UNIT PLAN OF CARE Name: SABAVALDEZ SOFI Room #: 514-P [facility] IN .R.#: [id number] Admission: 11/06/16 Attend Phys: Antonio Robert MD Discharge: Date of : 46 Report #: [id number] each five days a week throughout the duration of the acute inpatient rehabilitation stay. <ELECTRONICALLY SIGNED> By: Antonio Robert MD 11/14/16 1528 0947 1311 Antonio Robert MD /nt
[2016-11-06 14:27] VITALS: BP 114/66
[2016-11-06 20:10] VITALS: BP 134/88
[2016-11-07 05:11] VITALS: BP 125/69
[2016-11-07 06:03] LABS: HEMOGLOBIN 11.7 gm/dL (14.0-18.0); MCH 28.5 pg (26.0-34.0); MCHC 33.4 g/dL (28.0-37.0); MCV 85.3 fL (80.0-100.0); RBC 4.11 mil/uL (4.50-6.00); RDW 15.1 % (10.5-14.5); WBC 10.9 thou/uL (4.0-11.0)
[2016-11-07 06:12] LABS: CALCIUM 9.3 mg/dL (8.5-10.1); CREATININE 1.6 mg/dL (0.7-1.3); POTASSIUM 4.4 mmol/L (3.5-5.1)
[2016-11-07 08:00] VITALS: BP 145/87
[2016-11-07 16:46] VITALS: BP 103/61
[2016-11-08 04:03] VITALS: BP 118/67
[2016-11-08 16:00] VITALS: BP 98/60
[2016-11-09 04:56] VITALS: BP 131/79
[2016-11-09 06:14] LABS: HEMATOCRIT 32.6 % (42.0-52.0); HEMOGLOBIN 10.7 gm/dL (14.0-18.0); MCH 27.6 pg (26.0-34.0); MCHC 32.7 g/dL (28.0-37.0); MCV 84.4 fL (80.0-100.0); RBC 3.87 mil/uL (4.50-6.00); RDW 15.1 % (10.5-14.5); WBC 12.1 thou/uL (4.0-11.0)
[2016-11-09 06:35] LABS: CALCIUM 9.2 mg/dL (8.5-10.1); CREATININE 1.6 mg/dL (0.7-1.3); MAGNESIUM 1.9 mg/dL (1.8-2.4); POTASSIUM 5.7 mmol/L (3.5-5.1)
[2016-11-09 09:00] VITALS: BP 114/68
[2016-11-09 16:38] VITALS: BP 129/76
[2016-11-09 21:00] VITALS: BP 111/55
[2016-11-10 04:19] VITALS: BP 127/71
[2016-11-10 16:00] VITALS: BP 97/58
[2016-11-10 20:30] VITALS: BP 124/74
[2016-11-11 05:31] VITALS: BP 116/69
[2016-11-11 07:58] VITALS: BP 119/77
[2016-11-11 16:00] VITALS: BP 119/59
[2016-11-12 05:23] VITALS: BP 150/88
[2016-11-12 15:45] VITALS: BP 99/59
[2016-11-12 20:15] VITALS: BP 139/81
[2016-11-13 04:33] VITALS: BP 122/78
[2016-11-13 04:51] LABS: HEMOGLOBIN 10.2 gm/dL (14.0-18.0); MCH 27.9 pg (26.0-34.0); MCHC 32.9 g/dL (28.0-37.0); MCV 84.9 fL (80.0-100.0); RBC 3.65 mil/uL (4.50-6.00); RDW 15.5 % (10.5-14.5); WBC 15.1 thou/uL (4.0-11.0)
[2016-11-13 05:02] LABS: CALCIUM 9.2 mg/dL (8.5-10.1); CREATININE 1.7 mg/dL (0.7-1.3); MAGNESIUM 1.8 mg/dL (1.8-2.4); POTASSIUM 4.4 mmol/L (3.5-5.1)
[2016-11-13 14:36] VITALS: BP 110/67
[2016-11-13 16:00] VITALS: BP 92/58
[2016-11-14 04:22] VITALS: BP 132/76
[2016-11-14 16:00] VITALS: BP 109/60
[2016-11-15 05:28] VITALS: BP 126/76
[2016-11-15 07:30] VITALS: BP 123/87
[2016-11-15 11:47] VITALS: BP 110/67
[2016-11-15 11:49] VITALS: BP 110/67
[2016-11-15 16:13] VITALS: BP 101/61
[2016-11-15 21:05] VITALS: BP 112/70
[2016-11-16 04:05] VITALS: BP 137/64
[2016-11-16 05:00] LABS: HEMATOCRIT 30.9 % (42.0-52.0); HEMOGLOBIN 10.3 gm/dL (14.0-18.0); MCH 28.4 pg (26.0-34.0); MCHC 33.2 g/dL (28.0-37.0); MCV 85.4 fL (80.0-100.0); PLATELET COUNT 287 thou/uL (150-400); RBC 3.61 mil/uL (4.50-6.00); RDW 15.7 % (10.5-14.5); WBC 14.4 thou/uL (4.0-11.0)
[2016-11-16 05:09] LABS: MANUAL DIFF YES
[2016-11-16 05:15] LABS: CALCIUM 8.5 mg/dL (8.5-10.1); CREATININE 1.5 mg/dL (0.7-1.3); MAGNESIUM 1.7 mg/dL (1.8-2.4); POTASSIUM 4.4 mmol/L (3.5-5.1)
[2016-11-16 08:46] LABS: ABSOLUTE NEUTROPHILS 11.4 thou/uL (1.4-8.2); ANISOCYTOSIS 1+; METAMYELOCYTES 1 %; TOTAL CELL COUNT 100
[2016-11-16] MEDS ORDERED: POTASSIUM20 PO (12:01)
[2016-11-16] MEDS ORDERED: LASIX 20 MG TAB20 MG PO (12:01)
[2016-11-16] MEDS ORDERED: PROTONIX40 M1 PO (12:01)
[2016-11-16] MEDS ORDERED: MUCINEX TA600 MG/TA2 PO (12:01)
[2016-11-16] MEDS ORDERED: CARVEDILOL3.125 MG PO (12:01)
[2016-11-16] MEDS ORDERED: LISINOPRIL2.5 MG PO (12:01)
[2016-11-16] MEDS ORDERED: ACCUNEB SO1.25 MG/1 INH (12:01)
[2016-11-16] MEDS ORDERED: FLONASE 0.05%50 MCG NASAL (12:01)
[2016-11-16] MEDS ORDERED: LIPITOR20 MG PO (12:01)
[2016-11-16] MEDS ORDERED: CLARITIN10 MG PO (12:01)
[2016-11-16] MEDS ORDERED: CLOPIDOGREL75 MG PO (12:01)
[2016-11-16] MEDS ORDERED: BAYER CHEWABLE81 MG PO (12:01)
[2016-11-16] MEDS ORDERED: SYMBICORT80 MCG/4.1 INH (12:03)
[2016-11-16 12:34] VITALS: BP 110/67
== END 2016-11-16 17:02 | disposition home health service (06) | DRG 64 ==
PROVIDERS: Nurse Practitioner; Physical Medicine & Rehabilitation
DX: I63.9 Cerebral infarction, unspecified (principal); I50.23 Acute on chronic systolic (congestive) heart failure; J96.21 Acute and chronic respiratory failure with hypoxia; J96.22 Acute and chronic respiratory failure with hypercapnia; N17.9 Acute kidney failure, unspecified; I13.0 Hypertensive heart and chronic kidney disease with heart failure and stage 1 through stage 4 chronic kidney disease, or unspecified chronic kidney disease; R53.81 Other malaise; I25.5 Ischemic cardiomyopathy; R13.10 Dysphagia, unspecified; E78.5 Hyperlipidemia, unspecified; N18.9 Chronic kidney disease, unspecified; F01.50 Vascular dementia, unspecified severity, without behavioral disturbance, psychotic disturbance, mood disturbance, and anxiety; F17.210 Nicotine dependence, cigarettes, uncomplicated; J44.9 Chronic obstructive pulmonary disease, unspecified; R49.0 Dysphonia; R73.9 Hyperglycemia, unspecified; J38.00 Paralysis of vocal cords and larynx, unspecified; T38.0X5A Adverse effect of glucocorticoids and synthetic analogues, initial encounter; E87.5 Hyperkalemia; D72.829 Elevated white blood cell count, unspecified; I25.119 Atherosclerotic heart disease of native coronary artery with unspecified angina pectoris; Z98.42 Cataract extraction status, left eye; I25.2 Old myocardial infarction; Z95.5 Presence of coronary angioplasty implant and graft; Y92.89 Other specified places as the place of occurrence of the external cause; Z98.41 Cataract extraction status, right eye
CPT/HCPCS: 10112

== ENCOUNTER → 2016-12-12 | Outpatient (CLI) | payer OTHER ==
[~2016-12-12] MED LIST changes: +ACCUNEB SO1.25 MG/1 INH; +BAYER CHEWABLE81 MG PO; +CLARITIN10 MG PO; +FLONASE 0.05%50 MCG NASAL; +MUCINEX TA600 MG/TA2 PO; +SYMBICORT80 MCG/4.1 INH
== END ==
LOC: RAD 08:33 → SPEECH 14:09
DX: R47.02 Dysphasia (principal)

== ENCOUNTER 2017-02-23 20:11 | Inpatient (IN) | payer OTHER ==
[~2017-02-23] VITALS: Ht 190.5 cm; Wt 83.0 kg
--- NOTE | ~2017-02-23 | HC ---
[facility] [place] [address] CONSULTATION Name: VALDEZ WALTER Meghna Room #: 207-P [facility] IN .R.#: [id number] Admission: 02/23/17 Attend Phys: Bradley Kennedy MD Discharge: Date of : 46 Report #: [id number] THIS REPORT FOR: //name// CC: Jermaine Doll REASON FOR CONSULTATION: Shortness of breath and heart failure. HISTORY OF PRESENT ILLNESS: The patient is a 71-year-old -Citizen Of [place] with a severe ischemic cardiomyopathy. Earlier in the year, he had an out of hospital cardiac arrest, but ultimately, he has made a nice recovery from this. He has, however, declined ICD therapy and has been wearing a LifeVest. He does have a history of coronary artery disease with severe left ventricular dysfunction with an ejection fraction in the 20% to 25% range. He has a history of coronary artery disease with prior medicated stenting of the LAD in July 2016. He reports compliance with dual antiplatelet therapy. He now presents with increasing shortness of breath and hypertensive urgency with a blood pressure of 236/152, apparently had been on a diuretic that had been recently discontinued. He denies recurrent chest pain, pressure or ischemic type symptoms. With placement of BiPAP and intravenous Lasix, his blood pressure has normalized. No history of near syncope or syncope. MEDICATIONS: Include atorvastatin 20 mg daily, lisinopril 2.5 mg twice daily, an aspirin, Plavix 75 mg daily, potassium 10 mEq daily, Flonase, Symbicort, carvedilol 6.25 mg twice daily. He had been on Lasix 20 mg twice daily, although not recently. PAST MEDICAL HISTORY: Medical records have been reviewed and include a history of a severe ischemic cardiomyopathy, out of hospital cardiac arrest, peripheral stenting, COPD with a [id number] smoking history, prior stroke with right-sided weakness, dyslipidemia, cataract excision. SOCIAL HISTORY: He lives with his daughter, smoker. FAMILY HISTORY: Brother had a history of coronary artery disease with prior stenting. REVIEW OF SYSTEMS: All systems negative except as that noted above. PHYSICAL EXAMINATION: GENERAL: He is a pleasant gentleman, BiPAP is placed. He is alert and oriented, reports breathing much easier. VITAL SIGNS: Blood pressure is 109/76, heart rate of 80 and regular, temperature is 98.5 degrees. HEENT: There are neither xanthelasma, subcutaneous xanthomata, oral mucosal or [facility] [address] [place] [address] CONSULTATION Name: VALDEZ WALTER Room #: 207-P [facility] IN [facility]#: [id number] Admission: 02/23/17 Attend Phys: Bradley Kennedy MD Discharge: Date of : 46 Report #: [id number] digital cyanosis or kyphoscoliosis present. CHEST: Reveals diminished breath sounds at both bases. CARDIAC: Regular rate and rhythm with normal S1, S2. Heart sounds are distant. ABDOMEN: Soft and nontender. EXTREMITIES: Without cyanosis, clubbing or edema. Radial pulses are 2+. NEUROLOGIC: Right-sided weakness. LABORATORY DATA: Sodium is 142, potassium 4.5, creatinine 1.8, which is around what his baseline is. White count 15, hemoglobin 14, hematocrit 43, platelet count 147. Chest x-ray demonstrates diffuse interstitial infiltrates and edema, has a focal infiltrate in the right mid lung. EKG; sinus rhythm with nonspecific intraventricular conduction delay, poor R-wave progression, LVH with repolarization abnormality. Anterior ST elevation appears old, probably related to LV apical aneurysm possible component. This is an old finding and not thought to represent acute injury pattern. IMPRESSION: 1. Lafgj-mo-cqaqdco systolic heart failure. 2. History of recent cardiac arrest. 3. Severe ischemic cardiomyopathy. 4. Chronic kidney disease. 5. Prior left occipital cerebrovascular accident. 6. Hypertension. 7. Dyslipidemia. 8. History of peripheral stenting. 9. Chronic obstructive pulmonary disease with tobacco dependency. RECOMMENDATIONS: 1. Continued use of dual antiplatelet therapy. 2. Intravenous diuretic therapy. 3. Revisit placement of ICD. 4. Dietary salt restriction and compliance with medicines reinforced. 5. Serial cardiac enzymes. I do not; however, suspect an acute ischemic event precipitating this admission. Further thoughts and plans will be forthcoming based on this evaluation. Thank you for asking me to participate in his care. <ELECTRONICALLY SIGNED> By: Huy Hanks MD, FACC 02/26/17 0841 0827 0942 Huy Hanks MD, FACC /nt
--- NOTE | ~2017-02-23 | EKG ---
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1945 Requested By: Mary Villavicencio Order Number: [id number] MD: Huy Hanks Measurements Intervals [place] Rate: 134 P: 52 RI: 137 QRS: 74 QRSD: 99 T: 263 QT: 296 QTc: 442 Interpretive Statements Sinus tachycardia LAE, consider biatrial enlargement Left ventricular hypertrophy with repolarization abnormality Persistent anterior ST elevation consider aneurysm Compared to ECG 11/11/2016 21:26:04 No significant change was found Electronically Signed On 02-24-2017 13:55:15 CDT by Huy Hanks [email or web address] <ELECTRONICALLY SIGNED> By: Huy Hanks MD, [facility] 02/24/17 1355 24 24 Huy Hanks MD, [facility] /EPI
--- NOTE | ~2017-02-23 | HC ---
[facility] [place] [address] CONSULTATION Name: VALDEZ WALTER Meghna Room #: 245-P [facility] IN .R.#: [id number] Admission: 02/23/17 Attend Phys: Georges Henriquez MD Discharge: Date of : 46 Report #: [id number] THIS REPORT FOR: //name// CC: Jermaine Doll DATE OF SERVICE: 02/23/2017 REASON FOR CONSULTATION: Respiratory failure. IMPRESSION: 1. Acute respiratory failure. 2. Probable flash pulmonary edema. 3. History of cardiomyopathy. 4. Chronic kidney disease. 5. History of a left cerebrovascular accident. PLAN: We will have Cardiology see and reevaluate his home meds, echocardiogram, rule out RI, aerosol therapy and we will titrate BiPAP. HISTORY OF PRESENT ILLNESS: This is a very pleasant 71-year-old male who was actually doing very well on Saturday, was going around, doing a lot of things and was going over to his sister's, saw Home Health yesterday, was doing well, woke up feeling well this morning. This evening, however, developed acute shortness of breath. He came to the ER and was actually managed initially with BiPAP and workup has been ordered appropriately. He is currently awake, alert, oriented. PAST MEDICAL HISTORY: ALLERGIES: No known. MEDICATIONS: In the past include Coreg, lisinopril, Protonix, has stopped his diuretics. SOCIAL HISTORY: Positive tobacco in past. Negative EtOH. PAST SURGICAL HISTORY: Ileal graft, stent, cataract surgery. FAMILY HISTORY: Positive for coronary artery disease. REVIEW OF SYSTEMS: The patient has been doing well, no definite chest pain or palpitations. Currently, positive shortness breath, no fever, chills or night sweats. PHYSICAL EXAMINATION: [facility] [address] [place] [address] CONSULTATION Name: SABAVALDEZ Room #: 245-P [facility] IN [facility]#: [id number] Admission: 02/23/17 Attend Phys: Georges Henriquez MD Discharge: Date of : 46 Report #: [id number] VITAL SIGNS: Temperature 97.7, pulse initially 131, blood pressure 236/152, now down to 110/77. EYES: Negative icterus. NECK: Negative JVD. LUNGS: Showed few crackles. HEART: Regular. ABDOMEN: Bowel sounds present. EXTREMITIES: Showed no edema. NEUROLOGIC: Alert and oriented. RADIOLOGIC IMAGING: Chest x-ray showed bilateral infiltrates. LABORATORY DATA: White count 11.1, hemoglobin 17.8, platelets 173, pH was 7.124, pCO2 of 44. Repeat ABG showed pH 7.31, pCO2 34, pO2 284 on 100%, rate of 12, pressure support of 18, PEEP of 8. BNP 3387. By: 2228 0805 Jermaine Ballesteros MD /nt
--- NOTE | ~2017-02-23 | HC ---
[facility] [place] [address] CONSULTATION Name: SABAVALDEZ Meghna Room #: 207-P [facility] IN M.R.#: [id number] Admission: 02/23/17 Attend Phys: Bradley Kennedy MD Discharge: Date of : 47 Report #: [id number] THIS REPORT FOR: //name// CC: Jermaine Doll REASON FOR CONSULTATION: Evaluation for ICD implantation. HISTORY OF PRESENT ILLNESS: The patient is a 71-year-old with history of ischemic cardiomyopathy, status post ST segment elevation RI back in July of 2016 with a drug-eluting stent placed to the LAD. At that time, his ejection fraction was in the 20-25% range and he was sent home with a LifeVest. He was on optimal medical therapy including beta wes and DARLENE inhibitor. He was readmitted on October 26 with a PEA arrest. His LifeVest never shocked him for any arrhythmias. An echocardiogram at that time demonstrated that on October 26, his EF was 10-15%. He eventually improved from his hospitalization and had been undergoing routine titration of his cardiac meds as an outpatient. Apparently last week his diuretics were held due to some lowest blood pressures in order to make room to uptitrate his Coreg and lisinopril. He presented with acute congestive heart failure. He has been diuresed and his medications have been optimized. A repeat echocardiogram today demonstrates that his ejection fraction is 25-30%. He currently denies any chest pain. He denies any PND or orthopnea. His shortness of breath is improved. He denies presyncope or syncope. PAST MEDICAL HISTORY: 1. Coronary artery disease, status post ST segment elevation RI in July 2016. 2. Ischemic cardiomyopathy, EF of 25-30% today by echo. 3. Prior cardiac arrest due to PEA arrest, 10/26/2016. 4. COPD. 5. Prior CVA. 6. Peripheral vascular disease with aortofemoral bypass. SOCIAL HISTORY: He smokes. FAMILY HISTORY: Brother has CAD. ALLERGIES: None. MEDICATIONS: Reviewed and has been on optimal medical therapy since July. REVIEW OF SYSTEMS: A 12-point review of systems was performed and was negative other than what I mentioned above. PHYSICAL EXAMINATION: [facility] [address] [place] [address] CONSULTATION Name: VALDEZ WALTER Room #: 207-P [facility] IN [facility]#: [id number] Admission: 02/23/17 Attend Phys: Bradley Kennedy MD Discharge: Date of : 47 Report #: [id number] VITAL SIGNS: Temperature 36.7, pulse 77, respiration 20, blood pressure 134/76, sats are 97%. GENERAL: He is in no acute distress, sitting up at the edge of his bed. HEENT: Oropharynx is clear. NECK: Supple. No thyromegaly. HEART: Regular rate and rhythm with no murmurs, rubs or gallops. LUNGS: Clear to auscultation bilaterally. ABDOMEN: Soft, nontender, nondistended with no hepatosplenomegaly. EXTREMITIES: There is no clubbing, cyanosis, edema. NEUROLOGIC: Cranial nerves 2-12 are intact. LABORATORY DATA: Creatinine is 1.7, potassium 3.4, hemoglobin 13, white count 10, platelets 141. Chest x-ray I personally visualized today shows no acute process. Echo today shows EF of 10-15%. Echo from 10/26/2016 shows EF of 10-15%. ASSESSMENT AND PLAN: 1. Coronary artery disease. 2. ST segment elevation myocardial infarction. 3. Ischemic cardiomyopathy. 4. Chronic obstructive pulmonary disease. 5. Prior cerebrovascular accident. 6. Peripheral vascular disease. 7. Ongoing tobacco abuse. In summary, the patient is a 71-year-old with history of ischemic cardiomyopathy. He has been on optimal medical therapy since July including an DARLENE inhibitor and beta wes. Based on these findings, the patient meets criteria for ICD implantation for primary prevention of sudden cardiac . We discussed the details of the procedure including the risks, which include but are not limited to bleeding, infection, vascular damage, cardiac perforation, pneumothorax. He understands these risks and does want to proceed. By: [id number] 1621 Sebastián Claudio MD /nt
--- NOTE | ~2017-02-23 | EKG ---
[address] [address] ELECTROCARDIOGRAM REPORT Name: VALDEZ WALTER Room #: 207-P ADM IN M.R.#: [id number] Admission: 02/23/17 Attend Phys: Bradley Kennedy MD Discharge: Date of : 47 Report #: [id number] THIS REPORT FOR: //name// [facility] ED Test Date: 2017-02-23 Test Time: 22:23:07 Pat Name: VALDEZ WALTER Department: Room: 207 Gender: M Smt Operator: NEMO : 1945 Requested By: Mary Villavicencio Order Number: [id number] MD: Sebastián Claudio Measurements Intervals [place] Rate: 84 P: 58 TX: 149 QRS: 68 QRSD: 93 T: 153 QT: 392 QTc: 464 Interpretive Statements Sinus rhythm Ventricular premature complex Left atrial enlargement Electronically Signed On 02-25-2017 16:37:18 CDT by Sebastián Claudio [email or web address] <ELECTRONICALLY SIGNED> By: Sebastián Claudio MD 02/25/17 1637 2223 2223 Sebastián Claudio MD /BHUMI
--- NOTE | ~2017-02-23 | 2DMMODE ---
[facility] [address] [place] [address] 2 D/M-MODE ECHOCARDIOGRAM Name: WALTERVALDEZ Room #: 207-P [facility] IN ..#: [id number] Admission: 02/23/17 Attend Phys: Bradley Kennedy, Discharge: Date of : 47 Date of Service: 02/25/17 1029 Report #: [id number] THIS REPORT FOR: //name// APPROVED REPORT Study performed: 02/25/2017 09:47:53 EXAM: Comprehensive 2D Echocardiogram Patient Location: Bedside Room #: 207 Status: DIONICIO BSA: 2.11 HR: 87 bpm BP: 140/88 mmHg Other Information Study Quality: Good Indications CAD Cardiomyopathy Hypertension/HDD 2D Dimensions LVEF(%): 24.28 (>50%) IVSd: 7.44 (7-11mm) LVDd: 62.23 mm PWd: 6.82 (7-11mm) LVDs: 55.12 (25-40mm) Aortic Root: 31.58 mm Thomson's LVEF: 24.28 % Left Ventricle Left ventricle is dilated. Extensive septal, anterior, and apical akinesis There is normal left ventricular wall thickness. Left ventricular ejection fraction is moderate to severely decreased. LVEF is 25-30%. Right Ventricle The right ventricle is normal size. The right ventricular systolic function is normal. Atria The left atrium size is normal. The right atrium size is normal. [facility] [address] [place] [address] 2 D/M-MODE ECHOCARDIOGRAM Name: VALDEZ WALTER Room #: 207-P ADM IN M.R.#: [id number] Admission: 02/23/17 Attend Phys: Bradley Kennedy, Discharge: Date of : 47 Date of Service: 02/25/17 1029 Report #: [id number] Aortic Valve The aortic valve is normal in structure. Mitral Valve The mitral valve is normal in structure. Tricuspid Valve The tricuspid valve is normal in structure. Great Vessels The aortic root is normal in size. IVC is not well visualized. Pericardium There is no pericardial effusion. <Conclusion> Limited study, no Doppler LVEF is 25-30%. Extensive septal, anterior, and apical akinesis The mitral valve is normal in structure. The aortic valve is normal in structure. There is no pericardial effusion. <ELECTRONICALLY SIGNED> By: Huy Hanks MD, FACC 02/25/179 28 28 Huy Hanks MD, FACC /INF
--- NOTE | ~2017-02-23 | CATHLAB ---
[facility] [address] [place] [address] INVASIVE PROCEDURE REPORT Name: SABAVALDEZ Meghna Room #: 207-P [facility].#: [id number] Admission: 02/23/17 Attend Phys: Bradley Kennedy, Discharge: 02/26/17 Date of : 47 Date of Service: 02/27/17 1147 Report #: [id number] THIS REPORT FOR: //name// APPROVED REPORT Patient Location: Room #: Stress Nurse: ICD IMPLANTATION REPORT: History: Patient is a 71 year old male with a history of STEMI July 2016 who has been on optimal medical therapy and wearing a lifevest. He was admitted for acute heart failure and is back to baseline. His repeat echocardiogram demonstrates an EF of less than 35%. He is here for ICD implantation for primary prevention of sudden cardiac . Consent: The patient underwent informed consent were we discussed the details of the procedure including the risks which include but are not limited to bleeding infection vascular damage cardiac perforation pneumothorax. The patient understood these risks and is willing to proceed Anesthesia: Patient underwent Mac anesthesia performed by the anesthesiology service. Procedure: The patient was brought to the EP laboratory in a fasting nonsedated state and prepped and draped in a sterile fashion. The patient underwent a venogram showing patency of the left axillary vein. He received IV vancomycin prior to initiation of the procedure. Next, I injected 20 mL of lidocaine below the level of the left clavicle. Next an incision was made and a pocket was created over the prepectoral fascia and access was obtained once to the left axillary vein using the extrathoracic approach with this sheath positioned using the modified Salinger technique. Next under fluoroscopy a single-coil lead was positioned into the right ventricular apex. There was adequate pacing and sensing thresholds. The lead was sutured to the prepectoral fascia and the device was connected and the pocket was irrigated with vancomycin. The pocket was closed in 3 layers and surgical glue placed on the skin layer. The patient awoke neurologically and hemodynamically intact with no complications and no significant bleeding. [facility] [address] [place] [address] INVASIVE PROCEDURE REPORT Name: VALDEZ WALTER Meghna Room #: 207-P [facility]..#: [id number] Admission: 02/23/17 Attend Phys: Bradley Kennedy, Discharge: 02/26/17 Date of : 47 Date of Service: 02/27/17 1147 Report #: [id number] The implanted defibrillator was a [employer] medical model number CD [id number]. The RV lead was a [employer] medical model #7122 with a serial number [id number]. The lead demonstrated an R-wave of >12 mV impedance of 890 ohms and a pacing threshold of 0.5 V at 0.5 ms. The device was programmed to the VVI 40 mode. The VT zone was set at 180-220 with ATP while charging followed by max output shocks. VF sound was programmed at greater than 220 bpm with ATP while charging followed by max output shocks. Conclusion Conclusions: 1. Successful ICD implantation 2. Satisfactory right ventricular pacing and sensing thresholds. <ELECTRONICALLY SIGNED> By: Sebastián Claudio MD 02/27/17 1147 1147 1147 Sebastián Claudio MD /INF
[2017-02-23 20:14] VITALS: BP 236/152
[2017-02-23 20:43] LABS: ABSOLUTE NEUTROPHILS 4.7 thou/uL (1.4-8.2); BASOPHILS 0.6 % (0.0-2.0); EOSINOPHILS 1.4 % (0.0-3.0); HEMATOCRIT 52.8 % (42.0-52.0); HEMOGLOBIN 17.8 gm/dL (14.0-18.0); LYMPHOCYTES 48.3 % (24.0-44.0); MCH 29.3 pg (26.0-34.0); MCHC 33.7 g/dL (28.0-37.0); MCV 86.9 fL (80.0-100.0); PLATELET COUNT 173 thou/uL (150-400); POLYS 42.7 % (36.0-66.0); RBC 6.08 mil/uL (4.50-6.00); RDW 14.8 % (10.5-14.5); WBC 11.1 thou/uL (4.0-11.0)
[2017-02-23 20:45] LABS: ABG SAMPLE TYPE ARTERIAL; BE(vivo) -14.9 mmol/L (-2 to +3); HCO3 14.1 mmol/L (22.0-26.0); LACTATE 7.08 mmol/L (0.5-2.0); O2(CT) 23.5 mL/dL (15.0-23.0); O2Hb 97.6 % (92.0-98.0); PCO2 43.9 mmHg (35.0-45.0); PO2 214.6 mmHg (80.0-100.0); pH 7.124 (7.360-7.450); sO2 99.1 % (92.0-98.0); tCO2 15.4 mmol/L (24.0-30.0)
[2017-02-23 20:46] LABS: STICK SITE L.RADIAL
[2017-02-23 20:47] LABS: MANUAL DIFF NO
[2017-02-23 21:15] LABS: ANION GAP 16 mmol/L (7-16); BUN 21 mg/dL (7-18); CALCIUM 8.8 mg/dL (8.5-10.1); CHLORIDE 106 mmol/L (98-107); CO2 16 mmol/L (21-32); CREATININE 1.8 mg/dL (0.7-1.3); GLUCOSE 302 mg/dL (74-106); POTASSIUM 4.1 mmol/L (3.5-5.1); SODIUM 138 mmol/L (136-145)
[2017-02-23 21:28] LABS: TROPONIN-I < 0.04 ng/mL (<0.04-0.07)
[2017-02-23 22:02] LABS: ABG SAMPLE TYPE ARTERIAL; BE(vivo) -8.4 mmol/L (-2 to +3); HCO3 16.7 mmol/L (22.0-26.0); LACTATE 2.64 mmol/L (0.5-2.0); O2(CT) 22.2 mL/dL (15.0-23.0); O2Hb 97.6 % (92.0-98.0); PCO2 33.8 mmHg (35.0-45.0); PO2 284.6 mmHg (80.0-100.0); STICK SITE L.BRACHIAL; pH 7.311 (7.360-7.450); sO2 99.6 % (92.0-98.0); tCO2 17.7 mmol/L (24.0-30.0)
[2017-02-23 22:03] LABS: Pressure Support 18 cm H20
[2017-02-23] MEDS ORDERED: COREG6.25 MG PO (22:21)
[2017-02-23 23:05] VITALS: BP 126/87
[2017-02-23 23:34] VITALS: BP 112/68
[2017-02-24] VITALS (21 sets, daily range): BP systolic 85–127; BP diastolic 57–92
[2017-02-24 06:16] LABS: HEMATOCRIT 43.6 % (42.0-52.0); MCH 28.3 pg (26.0-34.0); MCHC 32.9 g/dL (28.0-37.0); MCV 86.2 fL (80.0-100.0); RBC 5.06 mil/uL (4.50-6.00); RDW 14.7 % (10.5-14.5)
[2017-02-24 06:20] LABS: CALCIUM 9.4 mg/dL (8.5-10.1); CREATININE 1.8 mg/dL (0.7-1.3); POTASSIUM 4.5 mmol/L (3.5-5.1)
[2017-02-24 06:32] LABS: HEMOGLOBIN 14.3 gm/dL (14.0-18.0)
[2017-02-24 08:54] LABS: ABG SAMPLE TYPE ARTERIAL; HCO3 21.7 mmol/L (22.0-26.0); LACTATE 1.44 mmol/L (0.5-2.0); O2(CT) 17.7 mL/dL (15.0-23.0); PCO2 34.2 mmHg (35.0-45.0); PO2 54.8 mmHg (80.0-100.0); STICK SITE L.RADIAL; sO2 89.4 % (92.0-98.0); tCO2 22.7 mmol/L (24.0-30.0)
[2017-02-25] VITALS (7 sets, daily range): BP systolic 116–140; BP diastolic 71–88
[2017-02-25 03:12] LABS: HEMATOCRIT 40.6 % (42.0-52.0); HEMOGLOBIN 13.5 gm/dL (14.0-18.0); MCH 28.5 pg (26.0-34.0); MCHC 33.2 g/dL (28.0-37.0); MCV 85.7 fL (80.0-100.0); RBC 4.74 mil/uL (4.50-6.00); RDW 14.3 % (10.5-14.5); WBC 10.5 thou/uL (4.0-11.0)
[2017-02-25 03:41] LABS: ALBUMIN 3.4 g/dL (3.4-5.0); CREATININE 1.7 mg/dL (0.7-1.3); TOTAL BILIRUBIN 0.6 mg/dL (<0.1-1.0); TOTAL PROTEIN 6.7 g/dL (6.4-8.2)
[2017-02-25 03:47] LABS: POTASSIUM 3.4 mmol/L (3.5-5.1)
[2017-02-26] VITALS (8 sets, daily range): BP systolic 115–129; BP diastolic 73–93
[2017-02-26 03:58] LABS: CALCIUM 9.3 mg/dL (8.5-10.1); CREATININE 1.5 mg/dL (0.7-1.3); POTASSIUM 3.7 mmol/L (3.5-5.1)
[2017-02-26] MEDS ORDERED: LASIX 40 MG TAB40 M2 PO (08:23)
== END 2017-02-26 18:26 | disposition home health service (06) | DRG 226 ==
LOC: ER 20:11 → 2N 22:22 → EROBS 22:22 → ICU 22:22 → 2N 02-24 16:00
PROVIDERS: Emergency Medicine; Internal Medicine; Internal Medicine Pulmonary Disease; Nurse Practitioner Family
DX: I13.0 Hypertensive heart and chronic kidney disease with heart failure and stage 1 through stage 4 chronic kidney disease, or unspecified chronic kidney disease (principal); J96.01 Acute respiratory failure with hypoxia; I50.23 Acute on chronic systolic (congestive) heart failure; N17.9 Acute kidney failure, unspecified; I16.1 Hypertensive emergency; E87.2 Acidosis; I69.351 Hemiplegia and hemiparesis following cerebral infarction affecting right dominant side; I73.9 Peripheral vascular disease, unspecified; J44.9 Chronic obstructive pulmonary disease, unspecified; E78.5 Hyperlipidemia, unspecified; I25.5 Ischemic cardiomyopathy; I25.10 Atherosclerotic heart disease of native coronary artery without angina pectoris; F17.210 Nicotine dependence, cigarettes, uncomplicated; I16.0 Hypertensive urgency; N18.3 Chronic kidney disease, stage 3 (moderate); I25.2 Old myocardial infarction; Z98.42 Cataract extraction status, left eye; Z98.41 Cataract extraction status, right eye; Z86.74 Personal history of sudden cardiac arrest; Z79.899 Other long term (current) drug therapy; Z95.5 Presence of coronary angioplasty implant and graft; Z91.14 Patient's other noncompliance with medication regimen

== ENCOUNTER → 2017-03-19 | Outpatient (CLI) | payer OTHER | LOC: SLEEPLAB 03-13 12:48 | DX: G47.33 Obstructive sleep apnea (adult) (pediatric) (principal) ==

== ENCOUNTER → 2017-04-04 | Outpatient (CLI) | payer OTHER ==
--- NOTE | ~2017-04-04 | SLE ---
[facility] [place] [address] POLYSOMNOGRAPHY STUDY Name: VALDEZ WALTER Meghna Room #: [facility]#: [id number] Admission: 04/04/17 Attend Phys: Jermaine Ballesteros MD Discharge: Date of : 47 Report #: [id number] THIS REPORT FOR: //name// CC: Jermaine Doll HISTORY: Prior study on 03/19 shown obstructive sleep apnea/hypopnea index of 37 events per hour, significant number of central apneas noted. Periodic limb movement with arousal was also 5.8. COMMENTS: CPAP TITRATION: Titrated at 5, 7, 8 and 9 cm water pressure. At 9 cm water pressure, the patient was seen for 68 minutes of which 32 minutes was in REM sleep. Central apnea 0, obstructive apnea 0, hypopnea 2. Apnea-hypopnea index 1.8 events per sleep hour, low sat of 94%. IMPRESSION: 1. History of obstructive sleep apnea/hypopnea, G47.33. 2. Arrhythmias noted. 3. Throughout the night, periodic limb movement with arousal index of 2.8 events per sleep hour. 4. CPAP improves the patient's apnea-hypopnea index, snoring and desaturation. SUGGESTIONS: 1. The usual sleep apnea suggestions were recommended. 2. Oral appliance or appropriate surgery may be considered with appropriate followup. 3. An auto-titrating CPAP between 5 and 10 cm water pressure is initially recommended. During our study, a ResRestoMesto AirFit F20 full face medium mask was used with heated humidity. 4. If signs and symptoms not improved with therapy, further evaluation is recommended. Please do not hesitate to contact me if I may be of further assistance. <ELECTRONICALLY SIGNED> By: Jermaine Ballesteros MD 04/09/17 0842 1712 0424 Jermaine Ballesteros MD /nt
== END ==
LOC: SLEEPLAB 12:35
DX: G47.33 Obstructive sleep apnea (adult) (pediatric) (principal)

== ENCOUNTER 2017-10-12 14:05 | Emergency (ER) | payer OTHER ==
[~2017-10-12] VITALS: Ht 182.9 cm; Wt 90.3 kg
[~2017-10-12 14:05] MED LIST changes: +CARVEDILOL6.25 MG PO; +COREG25 MG PO; +DEMADEX20 MG PO
[2017-10-12] MEDS ORDERED: GLUCOTROL10 MG PO (15:20)
[2017-10-12 15:33] LABS: ABSOLUTE NEUTROPHILS 6.3 thou/uL (1.4-8.2); BASOPHILS 0.8 % (0.0-2.0); EOSINOPHILS 1.1 % (0.0-3.0); HEMATOCRIT 41.9 % (42.0-52.0); HEMOGLOBIN 13.9 gm/dL (14.0-18.0); LYMPHOCYTES 18.6 % (24.0-44.0); MCH 28.6 pg (26.0-34.0); MCHC 33.2 g/dL (28.0-37.0); MONOCYTES 7.6 % (1.0-8.0); PLATELET COUNT 258 thou/uL (150-400); POLYS 71.9 % (36.0-66.0); RBC 4.87 mil/uL (4.50-6.00); RDW 14.2 % (10.5-14.5); WBC 8.7 thou/uL (4.0-11.0)
[2017-10-12 15:41] LABS: CALCIUM 9.8 mg/dL (8.5-10.1); CREATININE 1.8 mg/dL (0.7-1.3); POTASSIUM 4.4 mmol/L (3.5-5.1)
[2017-10-12 15:47] LABS: URIC ACID* 8.9 mg/dL (2.6-7.2)
[2017-10-12] MEDS ORDERED: INDOMETHACIN 2525 MG PO (16:50)
[2017-10-12 17:03] VITALS: BP 129/72
== END 2017-10-12 17:04 | disposition home or self-care (01) ==
LOC: ER 14:05
PROVIDERS: Nurse Practitioner Family
DX: H61.23 Impacted cerumen, bilateral (principal); M10.9 Gout, unspecified; J44.9 Chronic obstructive pulmonary disease, unspecified; E78.5 Hyperlipidemia, unspecified; I10 Essential (primary) hypertension; I25.10 Atherosclerotic heart disease of native coronary artery without angina pectoris; F17.210 Nicotine dependence, cigarettes, uncomplicated; Z95.5 Presence of coronary angioplasty implant and graft

== ENCOUNTER 2017-10-26 17:39 | Emergency (ER) | payer OTHER ==
[~2017-10-26] VITALS: Ht 185.4 cm; Wt 90.7 kg
--- NOTE | ~2017-10-26 | EKG ---
[facility] [place] [address] ELECTROCARDIOGRAM REPORT Name: VALDEZ WALTER Meghna [facility] [id number] Admission: 10/26/17 Attend Phys: Discharge: 10/26/17 Date of : 47 Report #: [id number] THIS REPORT FOR: //name// [facility] ED Test Date: 2017-10-26 Test Time: 17:55:34 Pat Name: VALDEZ WALTER Department: Room: Gender: Office Coordinator: FAVIO : 1945 Requested By: Isaias Lopez Order Number: [id number] MD: Huy Hanks Measurements Intervals [place] Rate: 84 P: 50 OR: 144 QRS: 54 QRSD: 89 T: 164 QT: 365 QTc: 432 Interpretive Statements Sinus rhythm Nonspecific ST and T wave abnormality Compared to ECG 06/12/2017 13:23:57 No significant change was found Electronically Signed On 10-27-2017 12:07:55 CDT by Huy Hanks [email or web address] <ELECTRONICALLY SIGNED> By: Huy Hanks MD, [facility] 10/27/17 1207 1755 54 Huy Hanks MD, FACC /EPI
--- NOTE | ~2017-10-26 | EKG ---
[facility] [place] [address] ELECTROCARDIOGRAM REPORT Name: WALTERVALDEZ [id number] Admission: 10/26/17 Attend Phys: Discharge: 10/26/17 Date of : 47 Report #: [id number] THIS REPORT FOR: //name// [facility] ED Test Date: 2017-10-26 Test Time: 19:57:52 Pat Name: VALDEZ WALTER Department: Room: Gender: Quill Fixer: NEWTON : 1945 Requested By: Rosa Parham Order Number: [id number] MD: Huy Hanks Measurements Intervals [place] Rate: 86 P: 42 [place]: 150 QRS: 33 QRSD: 103 T: 173 QT: 370 QTc: 443 Interpretive Statements Sinus rhythm Poor R wave progression Nonspecific ST and T wave abnormality Baseline wander in lead(s) V3 Compared to ECG 06/12/2017 13:23:57 No significant change was found Electronically Signed On 10-27-2017 12:09:42 CDT by Huy Hanks [email or web address] <ELECTRONICALLY SIGNED> By: Huy Hanks MD, [facility] 10/27/17 1209 56 56 Huy Hanks MD, [facility] /EPI
[~2017-10-26 17:39] MED LIST changes: +GLUCOTROL10 MG PO; +INDOMETHACIN 2525 MG PO
[2017-10-26 18:17] LABS: ABSOLUTE NEUTROPHILS 6.7 thou/uL (1.4-8.2); BASOPHILS 1.2 % (0.0-2.0); EOSINOPHILS 1.3 % (0.0-3.0); HEMATOCRIT 41.7 % (42.0-52.0); HEMOGLOBIN 14.3 gm/dL (14.0-18.0); LYMPHOCYTES 18.4 % (24.0-44.0); MCHC 34.2 g/dL (28.0-37.0); MCV 84.6 fL (80.0-100.0); MONOCYTES 7.1 % (1.0-8.0); PLATELET COUNT 195 thou/uL (150-400); RBC 4.93 mil/uL (4.50-6.00); RDW 14.6 % (10.5-14.5); WBC 9.2 thou/uL (4.0-11.0)
[2017-10-26 18:27] LABS: ANION GAP 12 mmol/L (7-16); BUN 43 mg/dL (7-18); CALCIUM 9.7 mg/dL (8.5-10.1); CHLORIDE 101 mmol/L (98-107); CO2 23 mmol/L (21-32); CREATININE 2.5 mg/dL (0.7-1.3); GLUCOSE 233 mg/dL (74-106); POTASSIUM 4.9 mmol/L (3.5-5.1); SODIUM 136 mmol/L (136-145)
[2017-10-26 18:30] LABS: PROTIME 9.9 Seconds (9.3-11.4)
[2017-10-26 18:48] LABS: ALBUMIN 4.1 g/dL (3.4-5.0); LIPASE 326 U/L (73-393); MAGNESIUM 1.9 mg/dL (1.8-2.4); SGPT 34 U/L (30-65); TOTAL BILIRUBIN 0.6 mg/dL (<0.1-1.0); TOTAL PROTEIN 8.6 g/dL (6.4-8.2); TROPONIN-I < 0.04 ng/mL (<0.06)
[2017-10-26 19:16] LABS: SGOT 33 U/L (15-37)
[2017-10-26 21:30] VITALS: BP 146/104
== END 2017-10-26 21:34 | disposition home or self-care (01) ==
LOC: ER 17:39
PROVIDERS: Emergency Medicine; Nurse Practitioner Family
DX: R07.89 Other chest pain (principal); J44.9 Chronic obstructive pulmonary disease, unspecified; E78.5 Hyperlipidemia, unspecified; I25.2 Old myocardial infarction; F17.210 Nicotine dependence, cigarettes, uncomplicated

== ENCOUNTER 2018-10-20 16:32 | Emergency (ER) | payer OTHER ==
[~2018-10-20] VITALS: Ht 182.9 cm; Wt 84.8 kg
[2018-10-20 17:33] LABS: URINE BILIRUBIN NEGATIVE (Negative); URINE BLOOD NEGATIVE (Negative); URINE CLARITY CLEAR; URINE COLOR YELLOW; URINE GLUCOSE-RANDOM* NEGATIVE (Negative); URINE KETONES TRACE (Negative); URINE LEUKOCYTES-REFLEX TRACE (Negative); URINE NITRITE-REFLEX NEGATIVE (Negative); URINE PROTEIN (DIPSTICK) 2+ (Negative); URINE SPECIFIC GRAVITY 1.025 (1.005-1.035)
[2018-10-20 17:46] LABS: CASTS None Seen /LPF (None Seen); CRYSTALS None Seen /LPF (None Seen); SQUAMOUS None Seen /LPF (0-3); URINE RBC None Seen /HPF (0-2); URINE WBC-REFLEX 0-5 Rare /HPF (0-5)
[2018-10-20 17:47] LABS: BACTERIA-REFLEX 1-9 Few /HPF (None Seen)
[2018-10-20 18:49] LABS: HEMATOCRIT 44.7 % (42.0-52.0); HEMOGLOBIN 14.9 gm/dL (14.0-18.0); MCH 28.1 pg (26.0-34.0); MCHC 33.5 g/dL (28.0-37.0); MCV 83.9 fL (80.0-100.0); RBC 5.32 mil/uL (4.50-6.00); RDW 15.2 % (10.5-14.5); WBC 21.8 thou/uL (4.0-11.0)
[2018-10-20 18:55] LABS: CALCIUM 9.7 mg/dL (8.5-10.1); POTASSIUM 5.1 mmol/L (3.5-5.1)
[2018-10-20 19:27] LABS: PLATELET COUNT 178 thou/uL (150-400)
[2018-10-20 19:28] LABS: ABSOLUTE NEUTROPHILS 19.2 thou/uL (1.4-8.2); ANISOCYTOSIS 1+
[2018-10-20] MEDS ORDERED: CIPROFLOXACIN500 M1 PO (21:05)
[2018-10-20] MEDS ORDERED: FLOMAX0.4 MG PO (21:07)
[2018-10-20 22:11] VITALS: BP 140/92
== END 2018-10-20 22:13 | disposition home or self-care (01) ==
LOC: ER 16:32
PROVIDERS: Emergency Medicine
DX: N40.0 Benign prostatic hyperplasia without lower urinary tract symptoms (principal); D72.829 Elevated white blood cell count, unspecified; J44.9 Chronic obstructive pulmonary disease, unspecified; E78.5 Hyperlipidemia, unspecified; I25.10 Atherosclerotic heart disease of native coronary artery without angina pectoris; I25.2 Old myocardial infarction; I25.5 Ischemic cardiomyopathy; I12.9 Hypertensive chronic kidney disease with stage 1 through stage 4 chronic kidney disease, or unspecified chronic kidney disease; N18.3 Chronic kidney disease, stage 3 (moderate); I73.9 Peripheral vascular disease, unspecified; F17.210 Nicotine dependence, cigarettes, uncomplicated; Z86.73 Personal history of transient ischemic attack (TIA), and cerebral infarction without residual deficits

== ENCOUNTER 2019-06-27 20:40 | Inpatient (IN) | payer OTHER ==
[~2019-06-27] VITALS: Ht 182.9 cm; Wt 87.3 kg
[~2019-06-27 20:40] MED LIST changes: +CIPROFLOXACIN500 M1 PO; +FLOMAX0.4 MG PO
[2019-06-27 20:48] VITALS: BP 146/87
[2019-06-27 21:38] LABS: ABSOLUTE NEUTROPHILS 8.6 thou/uL (1.4-8.2); BASOPHILS 0.8 % (0.0-2.0); HEMATOCRIT 38.5 % (42.0-52.0); HEMOGLOBIN 12.6 gm/dL (14.0-18.0); LYMPHOCYTES 6.3 % (24.0-44.0); MCH 27.5 pg (26.0-34.0); MCHC 32.7 g/dL (28.0-37.0); MCV 84.1 fL (80.0-100.0); MONOCYTES 6.8 % (1.0-8.0); PLATELET COUNT 179 thou/uL (150-400); POLYS 86.1 % (36.0-66.0); RBC 4.57 mil/uL (4.50-6.00); RDW 15.2 % (10.5-14.5)
[2019-06-27 21:41] LABS: CALCIUM 9.8 mg/dL (8.5-10.1); CREATININE 2.7 mg/dL (0.7-1.3); POTASSIUM 3.8 mmol/L (3.5-5.1)
[2019-06-27 21:47] LABS: ALBUMIN 4.3 g/dL (3.4-5.0); DIRECT BILIRUBIN 0.3 mg/dL (<0.1-0.2); TOTAL BILIRUBIN 0.8 mg/dL (<0.1-1.0); TOTAL PROTEIN 8.5 g/dL (6.4-8.2)
[2019-06-27 23:39] LABS: URINE BILIRUBIN NEGATIVE (Negative); URINE BLOOD 2+ (Negative); URINE CLARITY CLEAR; URINE COLOR YELLOW; URINE GLUCOSE-RANDOM* NEGATIVE (Negative); URINE KETONES NEGATIVE (Negative); URINE LEUKOCYTES-REFLEX NEGATIVE (Negative); URINE NITRITE-REFLEX NEGATIVE (Negative); URINE PROTEIN (DIPSTICK) 1+ (Negative); URINE SPECIFIC GRAVITY 1.015 (1.005-1.035)
[2019-06-27 23:55] LABS: BACTERIA-REFLEX None Seen /HPF (None Seen); CASTS None Seen /LPF (None Seen); CRYSTALS None Seen /LPF (None Seen); MUCUS None Seen strn/LPF (None Seen); SQUAMOUS None Seen /LPF (0-3); URINE RBC 0-2 Rare /HPF (0-2); URINE WBC-REFLEX None Seen /HPF (0-5)
[2019-06-28] VITALS (7 sets, daily range): BP systolic 101–138; BP diastolic 38–80
--- NOTE | 2019-06-28 01:56 | NUR ---
ASSUMED CARE FROM ED TO ROOM 447 , PT ABLE TO AMBULATE FROM GURNEY TO BED WITHOUT DIFF, BUT PT STATED HE DOES FEEL WEAK, PT PLACED ON FALL RISK PRECAUTIONS. DRY CONGESTED COUGH NOTED BUT LUNG SOUND CLEAR DECRESED IN BASES. ASSESMNET COMPLETED WITH DATA BASE , PT ORIENTED TO ROOM AND PLAN OF CARE , VERBALIZED UNDERSTANDING AND AGRREABLE. PT PLACED ON DROPLET ISOLATION.
[2019-06-28 04:36] LABS: CALCIUM 9.3 mg/dL (8.5-10.1); CREATININE 2.5 mg/dL (0.7-1.3); POTASSIUM 3.8 mmol/L (3.5-5.1)
--- NOTE | 2019-06-28 18:30 | NUR ---
Assumed patient care at 0715. Patient continues in Isolation for Influenza A. Dr Dias asked this nurse to call family and inform them that everyone whom lives with patient needs to be tested for Influenza A. Authorized Contact (daughter Beronica Rogers) contacted. Informed daughter of Dr Dias's suggestion's. Daughter then came with several relatives/friends to visit patient. This nurse educated daughter and everyone in the room of the seriousness of this illness; they verbalized an understanding of all teaching. Vital signs are stable. Compliant with medications. Will report to on-coming RN.
--- NOTE | 2019-06-29 03:07 | NUR ---
ASSUMED CARE FROM PREVIOUS SHIFT PT ALET AND ORIENTED X4 FORGETFUL AT TIMES , DRY COUGH REMAINS DENIES SOA, BED ALARM ON FOR SAFETY PT AGREEABLE. DISCUSSED PLAN OF CARE . PT UP TO BSC FORGOT TO USE CALL LIGHT BED ALARM WENT OFF. PT HAD SMALL SOFT STOOL. PT BACK TO BED AND RESTED WELL THROUGHOUT HOURLY ROUNDS, WILL REPORT CHANGES OR ABNORMAL FINDINGS.
[2019-06-29 05:07] VITALS: BP 132/82
[2019-06-29 08:03] VITALS: BP 140/77
[2019-06-29] MEDS ORDERED: MIRALAX17 GM PO (10:43)
[2019-06-29] MEDS ORDERED: TAMIFLU30 MG PO (10:43)
[2019-06-29] MEDS ORDERED: ACETAMINOPHEN325 M1 PO (10:43)
[2019-06-29] MEDS ORDERED: ALBUTEROL2.5 MG/0.5 INH (10:43)
[2019-06-29 11:59] VITALS: BP 140/77
--- NOTE | 2019-06-29 13:40 | NUR ---
[facility] RECEIVED CONFIRMATION AND SPOKE WITH TRINITY IN INTAKE SHE WILL NOTIFY PT TIME OF VISITS.
== END 2019-06-29 18:57 | disposition home health service (06) | DRG 871 ==
LOC: ER 20:40 → 4S 22:58 → EROBS 22:58 → 4S 06-28 01:11 → ENTRNSPT 06-29 16:53 → 4S 06-29 18:57
PROVIDERS: Emergency Medicine; Nurse Practitioner Family; ADMIT Internal Medicine
DX: A41.9 Sepsis, unspecified organism (principal); G92 Toxic encephalopathy; J96.01 Acute respiratory failure with hypoxia; J10.08 Influenza due to other identified influenza virus with other specified pneumonia; J12.89 Other viral pneumonia; I13.0 Hypertensive heart and chronic kidney disease with heart failure and stage 1 through stage 4 chronic kidney disease, or unspecified chronic kidney disease; N17.9 Acute kidney failure, unspecified; I50.22 Chronic systolic (congestive) heart failure; I69.351 Hemiplegia and hemiparesis following cerebral infarction affecting right dominant side; J44.0 Chronic obstructive pulmonary disease with (acute) lower respiratory infection; I73.9 Peripheral vascular disease, unspecified; N18.9 Chronic kidney disease, unspecified; I25.5 Ischemic cardiomyopathy; E78.5 Hyperlipidemia, unspecified; I25.10 Atherosclerotic heart disease of native coronary artery without angina pectoris; Z87.891 Personal history of nicotine dependence; Z95.820 Peripheral vascular angioplasty status with implants and grafts; Z98.41 Cataract extraction status, right eye; Z91.19 Patient's noncompliance with other medical treatment and regimen; I25.2 Old myocardial infarction; Z95.810 Presence of automatic (implantable) cardiac defibrillator; Z79.82 Long term (current) use of aspirin; Z79.899 Other long term (current) drug therapy; Z23 Encounter for immunization
CPT/HCPCS: 10195

== ENCOUNTER 2019-07-28 02:06 | Inpatient (IN) | payer OTHER ==
[~2019-07-28] VITALS: Ht 175.3 cm; Wt 86.2 kg
[2019-07-28] VITALS (9 sets, daily range): BP systolic 103–169; BP diastolic 61–110
[~2019-07-28 02:06] MED LIST changes: +ACETAMINOPHEN325 M1 PO; +ALBUTEROL2.5 MG/0.5 INH; +MIRALAX17 GM PO; +TAMIFLU30 MG PO
[2019-07-28 02:33] LABS: BE(vivo) -8.3 mmol/L (-2 to +3); HCO3 18.3 mmol/L (22.0-26.0); PCO2 41.4 mmHg (35.0-45.0); PO2 183.4 mmHg (80.0-100.0); pH 7.263 (7.360-7.450); sO2 99.1 % (92.0-98.0)
[2019-07-28 02:55] LABS: BASOPHILS 1.2 % (0.0-2.0); EOSINOPHILS 2.1 % (0.0-3.0); HEMATOCRIT 38.6 % (42.0-52.0); HEMOGLOBIN 12.2 gm/dL (14.0-18.0); LYMPHOCYTES 42.8 % (24.0-44.0); MCH 27.2 pg (26.0-34.0); MCHC 31.5 g/dL (28.0-37.0); MCV 86.4 fL (80.0-100.0); MONOCYTES 7.9 % (1.0-8.0); PLATELET COUNT 264 thou/uL (150-400); RBC 4.47 mil/uL (4.50-6.00); RDW 16.4 % (10.5-14.5); WBC 6.6 thou/uL (4.0-11.0)
[2019-07-28 03:01] LABS: ANION GAP 17 mmol/L (7-16); BUN 25 mg/dL (7-18); CALCIUM 9.1 mg/dL (8.5-10.1); CHLORIDE 105 mmol/L (98-107); CO2 17 mmol/L (21-32); CREATININE 2.2 mg/dL (0.7-1.3); GLUCOSE 299 mg/dL (74-106); POTASSIUM 4.5 mmol/L (3.5-5.1); SODIUM 139 mmol/L (136-145)
[2019-07-28 03:09] LABS: TROPONIN-I <0.06 ng/mL (<0.06)
--- NOTE | 2019-07-28 05:23 | NUR ---
0415 07/28/2019 I HAND CARRIED EKG DONE IN ER TO [facility]. GIVEN TO RN DURING PATIENT TRANSFER.
--- NOTE | 2019-07-28 07:49 | NUR ---
PT ARRIVED FROM ER VIA CART WITH RN. PT PLACED IN ROOM 363. ADMISSION ASSESSMENTS COMPLETED. PT DENIED ANY PAIN BUT DID STATE HE WAS FEELING SOA. REPORTEDLY PT WAS TAKEN OFF THE BIPAP BUT WAS UNABLE TO MAINTAIN AN APPROPRIATE OXYGEN SATURATION WITH THE NASAL CANNULA THUS BIPAP WAS RESUMED. PT NOTED TO HAVE CRACKLES RML,SRLL, LLL PER AUSCULTATION OF THE LUNG NGUYỄN. DENIED ANY COUGH OR ANY PRODUCTIVE SPUTUM. DENIED ANY SENSE OF CHEST PAIN OR DISCOMFORT.
--- NOTE | 2019-07-28 09:27 | 2DMMODE ---
[facility] [place] [address] 2 D/M-MODE ECHOCARDIOGRAM Name: VALDEZ WALTER Room #: 363-P [facility] IN ..#: [id number] Admission: 07/28/19 Attend Phys: Cynthia Magana Discharge: Date of : 47 Report #: [id number] THIS REPORT FOR: //name// APPROVED REPORT Study performed: 07/28/2019 08:17:52 EXAM: Comprehensive 2D, Doppler, and color-flow Echocardiogram Patient Location: Bedside Room #: 363 Status: routine BSA: 2.05 HR: 80 bpm BP: 130/87 mmHg Rhythm: NSR Other Information Study Quality: Adequate/low parasternal window/patient on BiPAP. Indications Fluid overload, short of breath. Hx: ISCM, VA, cardiac arrest, ICD, COPD, PVD, CVA. Echo Enhancing Agent Indication: Endocardial border delineation/Rule out thrombus Agent(s) / Amount(s) Used: Optison 8 cc 2D Dimensions RVDd: 36.80 mm IVSd: 8.62 (7-11mm) LVOT Diam: 20.88 (18-24mm) LVDd: 60.02 mm PWd: 8.16 (7-11mm) LVDs: 54.76 (25-40mm) Aortic Root: 35.64 mm Volumes Left Atrial Volume (Systole) Single Plane 4CH: 43.96 mL Single Plane 2CH: 55.06 mL LA ESV Index: 27.00 mL/m2 Aortic Valve AoV Peak Oscar.: 1.10 m/s AO Peak Gr.: 4.86 mmHg LVOT Max P.40 mmHg LVOT Max V: 0.92 m/s [facility] [place] [place] [address] 2 D/M-MODE ECHOCARDIOGRAM Name: VALDEZ WALTER Room #: 363-[facility]#: [id number] Admission: 07/28/19 Attend Phys: Cynthia Magana Discharge: Date of : 47 Report #: [id number] MARILYN Vmax: 2.86 cm2 Mitral Valve E/A Ratio: 0.7 MV Decel. Time: 142.17 ms MV E Max Oscar.: 0.67 m/s MV A Oscar.: 1.02 m/s MV PHT: 41.23 ms IVRT: 152.25 ms Pulmonary Valve PV Peak Oscar.: 0.56 m/s PV Peak Gr.: 1.26 mmHg Pulmonary Vein P Vein S: 0.50 m/s P Vein D: 0.27 m/s P Vein S/D Ratio: 1.85 Tricuspid Valve TR Peak Oscar.: 2.50 m/s RAP Estimate: 5.00 mmHg TR Peak Gr.: 25.00 mmHg PA Pressure: 30.00 mmHg Left Ventricle Left ventricle is mildly dilated. There is normal left ventricular wall thickness. Left ventricular systolic function is severely decreased. LVEF is 25%. Mild diastolic dysfunction is present (impaired relaxation pattern). Right Ventricle The right ventricle is normal size. Right ventricle is mildly hypokinetic. Device lead is present in the right ventricle. Atria The left atrium size is normal. The right atrium size is normal. Aortic Valve The aortic valve is normal in structure. Leaflets are mildly thickened. Trace aortic regurgitation. There is no aortic valvular stenosis. Mitral Valve The mitral valve is normal in structure. Mild mitral regurgitation. [facility] [place] [place] [address] 2 D/M-MODE ECHOCARDIOGRAM Name: VALDEZ WALTER Meghna Room #: 363-P [facility] IN ..#: [id number] Admission: 07/28/19 Attend Phys: Cynthia Magana Discharge: Date of : 47 Report #: [id number] Tricuspid Valve The tricuspid valve is normal in structure. Mild tricuspid regurgitation. Estimated PAP is 30mmHg. Pulmonic Valve The pulmonary valve is normal in structure. Trace pulmonic regurgitation. Great Vessels The aortic root is normal in size. Ascending aorta is not well visualized. IVC is normal in size and collapses >50% with inspiration. Pericardium There is no pericardial effusion. <Conclusion> Left ventricle is mildly dilated. LVEF is 25%. Device lead is present in the right ventricle. The aortic valve is normal in structure. Leaflets are mildly thickened. Trace aortic regurgitation. The mitral valve is normal in structure. Mild mitral regurgitation. The tricuspid valve is normal in structure. Mild tricuspid regurgitation. Estimated PAP is 30mmHg. The pulmonary valve is normal in structure. Trace pulmonic regurgitation. There is no pericardial effusion. <ELECTRONICALLY SIGNED> By: Anastacio Aguilar MD 07/28/19925 5 5 Anastacio Aguilar MD /INF
--- NOTE | 2019-07-28 17:03 | NUR ---
INITIAL ASSESSMENT: SW reviewed chart and spoke with nursing and attending physician. Pt was admitted from home due CHF exacerbation. Pt is currently on IV lasix. SW met with pt at bedside. Introduced role of SW. Pt is alert/orientated x 4. Pt currently on bipap. Pt reports he lives at home with family. Prior to admission, pt was independent with ADLs. No use of DME for ambulation. Pt states he has a bipap machine at home, but does not use it. Pt is not on O2 prior to admission. Pt was recently discharge home with [facility] . Pt's goal is to return home when medically stable. communications planner to fax referral to [facility] tomorrow. SW is following to assist as needed with discharge planning.
--- NOTE | 2019-07-28 17:55 | NUR ---
ASSUMED PATIENT CARE AT 0700. A/O X3. PLEASANT. DENIES PAIN. AMBULATED IN HALLWAY. OFF BIPAP AT 0900. RA 100% FI02. PROGRESSING TOWARDS POC GOALS.
--- NOTE | 2019-07-28 19:44 | EKG ---
[address] [employer] [place] [address] ELECTROCARDIOGRAM REPORT Name: SABAVALDEZ Meghna Room #: 363-P ADM IN M.R.#: [id number] Admission: 07/28/19 Attend Phys: Marta Hinton MD Discharge: Date of : 47 Report #: [id number] THIS REPORT FOR: //name// [facility] ED Test Date: 2019-07-28 Test Time: 02:12:12 Pat Name: VALDEZ WALTER Department: Room: 363 Gender: M Policy Officer: iain : 1945 Requested By: Alvin Piña Order Number: [id number] MD: Huy Hanks Measurements Intervals [place] Rate: 110 P: 51 FL: 147 QRS: 67 QRSD: 94 T: 193 QT: 332 QTc: 450 Interpretive Statements Sinus tachycardia Nonspecific ST and T wave abnormality Compared to ECG 10/26/2017 19:57:52 Heart rate has increased Electronically Signed On 07-28-2019 19:43:25 POOL HALL INSPECTOR by Huy Hanks [email or web address] <ELECTRONICALLY SIGNED> By: Huy Hanks MD, [facility] 07/28/191942 1 1 Huy Hanks MD, FACC /EPI
--- NOTE | 2019-07-29 03:52 | NUR ---
ASSUMED CARE FROM DAY PT WITH CONITNUE SAT MONITOR SHOWSA 97 % DENIES SOA REQUESTING MEDICATION FOR SLEEP. MELATONIN GIVEN AND PT RESTED WELL THROUHGOUT HOURLY ROUNDS. BAKER DOUGHNUT SHOWS NSR 79. PT REFUSED BIPAP PT ON ROOM AIR SAT REMAINS IN HIGH 90S. WILL CONITINUE WITH CURRENT PLAN OF CARE AND REPORT CHANGES OR ABNORMAL FINDINGS.
[2019-07-29 04:12] VITALS: BP 99/65
[2019-07-29 06:23] LABS: ABSOLUTE NEUTROPHILS 4.4 thou/uL (1.4-8.2); BASOPHILS 0.6 % (0.0-2.0); EOSINOPHILS 1.2 % (0.0-3.0); HEMATOCRIT 34.1 % (42.0-52.0); HEMOGLOBIN 10.9 gm/dL (14.0-18.0); LYMPHOCYTES 26.1 % (24.0-44.0); MCH 27.4 pg (26.0-34.0); MCHC 32.1 g/dL (28.0-37.0); MCV 85.4 fL (80.0-100.0); MONOCYTES 9.6 % (1.0-8.0); POLYS 62.5 % (36.0-66.0); RDW 16.8 % (10.5-14.5)
[2019-07-29 06:45] LABS: PLATELET COUNT 185 thou/uL (150-400)
[2019-07-29 06:46] LABS: CALCIUM 9.3 mg/dL (8.5-10.1); CREATININE 2.1 mg/dL (0.7-1.3); POTASSIUM 3.7 mmol/L (3.5-5.1)
[2019-07-29 07:37] VITALS: BP 100/50
[2019-07-29 12:03] VITALS: BP 100/47
--- NOTE | 2019-07-29 12:24 | NUR ---
DISCHARGE PLAN TO HOME WITH HOME HEALTH SERVICES. PATIENT IS CURRENT WITH [facility]. VERIFIED WITH [facility]. [facility] TO RESUME PATIENTS HH SERVICES ONCE DISCHARGE/HH ORDERS RECEIVED.
--- NOTE | 2019-07-29 14:48 | NUR ---
SW reviewed chart and spoke with nursing and attending physician. Pt is progressing towards goals for discharge. Discharge home is anticipated for tomorrow. Pt is currently on service with [facility]. associate financial planner to fax referral to . RAPHAEL is following to assist as needed with discharge planning.
[2019-07-29 17:03] VITALS: BP 110/78
--- NOTE | 2019-07-29 17:59 | NUR ---
PROGRESSING TOWARDS POC GOALS. TOLERTAED RA.
[2019-07-29 19:45] VITALS: BP 106/53
--- NOTE | 2019-07-29 22:07 | NUR ---
ASSUMED CARE FROM DAY SHIFT PT ON BIPAP BUT TOOK STATING HE NEEDS A BREAK AND WANTED TO DRINK WATER. SAT 98 % ON ROOM AIR.
--- NOTE | 2019-07-30 04:00 | NUR ---
ASSUMED CARE FROM DAY SHIFT PT RESTING IN BED, DENIES SOA OR CHEST PAIN , PT VOIDING CLEAR YELLOW URINE ,PT RESTING WELL THROUGHOUT HORLY ROUNDS, ON BIPAP SAT 100% WILL CONTINUE WITH CURRENT PLAN CARE WILL REPORT CHANGES AND ABNORMAL STANDING.
[2019-07-30 04:35] VITALS: BP 103/71
[2019-07-30 05:23] LABS: CALCIUM 9.7 mg/dL (8.5-10.1); CREATININE 2.3 mg/dL (0.7-1.3); POTASSIUM 4.2 mmol/L (3.5-5.1)
[2019-07-30 07:53] VITALS: BP 108/66
[2019-07-30 11:28] VITALS: BP 121/66
[2019-07-30 12:19] VITALS: BP 121/66
[2019-07-30] MEDS ORDERED: JANUVIA25 MG PO (14:35)
[2019-07-30 15:13] VITALS: BP 121/73
--- NOTE | 2019-07-30 15:26 | NUR ---
DISCHARGE NOTE: SW reviewed chart and spoke with nursing and attending physician. Pt is medically stable for discharge home today with services. Pt will resume HH services with [facility] . HH liaison met with pt earlier today. SW met with pt at bedside to provide update and discuss discharge. Pt is aware and agreeable with discharge plan. Pt's family will provide transportation home. sales planner to fax orders/summary to HH. Contact info for HH placed in pt's discharge summary. No additional SW needs identified at this time, but is available to assist as should needs arise.
[2019-07-30 17:09] VITALS: BP 121/73
== END 2019-07-30 18:15 | disposition home health service (06) | DRG 291 ==
LOC: ER 02:06 → EROBS 03:37 → 3W 03:37
PROVIDERS: Emergency Medicine; Nurse Practitioner; ADMIT Hospitalist
PROC: 5A09357 Assistance with Respiratory Ventilation, Less than 24 Consecutive Hours, Continuous Positive Airway Pressure (ICD-10-PCS; principal; 2019-07-28)
DX: I13.0 Hypertensive heart and chronic kidney disease with heart failure and stage 1 through stage 4 chronic kidney disease, or unspecified chronic kidney disease (principal); J96.01 Acute respiratory failure with hypoxia; I50.23 Acute on chronic systolic (congestive) heart failure; N18.4 Chronic kidney disease, stage 4 (severe); I69.351 Hemiplegia and hemiparesis following cerebral infarction affecting right dominant side; J44.9 Chronic obstructive pulmonary disease, unspecified; I25.10 Atherosclerotic heart disease of native coronary artery without angina pectoris; M10.9 Gout, unspecified; G47.33 Obstructive sleep apnea (adult) (pediatric); E11.22 Type 2 diabetes mellitus with diabetic chronic kidney disease; K21.9 Gastro-esophageal reflux disease without esophagitis; I25.5 Ischemic cardiomyopathy; E78.5 Hyperlipidemia, unspecified; G47.00 Insomnia, unspecified; E11.51 Type 2 diabetes mellitus with diabetic peripheral angiopathy without gangrene; N40.1 Benign prostatic hyperplasia with lower urinary tract symptoms; R39.15 Urgency of urination; E11.65 Type 2 diabetes mellitus with hyperglycemia; Z95.820 Peripheral vascular angioplasty status with implants and grafts; Z98.41 Cataract extraction status, right eye; Z95.5 Presence of coronary angioplasty implant and graft; Z95.810 Presence of automatic (implantable) cardiac defibrillator; I25.2 Old myocardial infarction; Z86.74 Personal history of sudden cardiac arrest; Z79.51 Long term (current) use of inhaled steroids; Z79.899 Other long term (current) drug therapy; Z79.82 Long term (current) use of aspirin; Z79.4 Long term (current) use of insulin; Z87.891 Personal history of nicotine dependence; Z23 Encounter for immunization
CPT/HCPCS: 10879

== ENCOUNTER 2020-01-17 19:52 | Emergency (ER) | payer OTHER ==
[~2020-01-17] VITALS: Ht 182.9 cm; Wt 90.7 kg
[~2020-01-17 19:52] MED LIST changes: +JANUVIA25 MG PO
[2020-01-17 21:54] VITALS: BP 131/85
== END 2020-01-17 21:55 | disposition home or self-care (01) ==
LOC: ER 19:52
DX: S80.01XA Contusion of right knee, initial encounter (principal); I10 Essential (primary) hypertension; E78.5 Hyperlipidemia, unspecified; I25.2 Old myocardial infarction; I25.10 Atherosclerotic heart disease of native coronary artery without angina pectoris; J44.9 Chronic obstructive pulmonary disease, unspecified; F17.210 Nicotine dependence, cigarettes, uncomplicated; Z79.82 Long term (current) use of aspirin; Z79.899 Other long term (current) drug therapy; W01.0XXA Fall on same level from slipping, tripping and stumbling without subsequent striking against object, initial encounter; Y93.89 Activity, other specified; Y92.89 Other specified places as the place of occurrence of the external cause; Y99.8 Other external cause status